=== PATIENT | female | born 1945 | race Caucasian/White ===

== ENCOUNTER → 2016-11-06 | Outpatient (CLI) | payer OTHER ==
[~2016-11-06] VITALS: Ht 147.3 cm; Wt 59.0 kg
[~2016-11-06] MED LIST: /GLIP10TAB OR; ACET65TA OR; AMLO10TA OR; AMLO25TA PO; ASPI1TAB24 PO; ASPI81TA83 OR; CALC500T36 PO; CALC500T49 PO; FERR325T3 PO; GABA-279 PO; GLIP10TA6 PO; GLUC850T OR; IRON65TA PO; LIDOCAINE 2% INJ 100 MG/5 ML SDV (FOR ANES.) As Ordered ONE; LIPI80TA PO; LISI10TA4 PO; LISI5TAB OR; LR 1,000 ML IV SCH; MAGN1TAB25 PO; METF850T PO; MULT1TAB10 PO; MULTIVIT PO; NOVOLOG100 MG/ML SC; OMEP40CA2 PO; PRESCAP PO; PROPOFOL 200 MG/20 ML VIAL As Ordered ONE; RANI1TAB6 PO; TYLE325T5 PO; VITA100072 PO; VOLT1GEL24 TD; ZYRT10CA PO; astelin
--- NOTE | 2016-11-06 11:58 | ROOR ---
Patient Name: Ev Lucas Procedure Date: 11/06/2016 11:41 AM Date of : 1945 Age: 70 Room: [facility] Gender: Female Note Status: Finalized Procedure: Upper GI endoscopy Indications: Iron deficiency anemia, Heartburn Providers: Ayaan MARISCAL MD Referring MD: Guille Conley MD Requesting Provider: Medicines: Monitored Anesthesia Care Complications: No immediate complications. Procedure: Pre-Anesthesia Assessment: - The heart rate, respiratory rate, oxygen saturations, blood pressure, adequacy of pulmonary ventilation, and response to care were monitored throughout the procedure. The Endoscope was introduced through the mouth, and advanced to the third part of duodenum. The upper GI endoscopy was accomplished without difficulty. The patient tolerated the procedure well. Findings: The esophagus was normal. The stomach was normal. The examined duodenum was normal. Biopsies for histology were taken with a cold forceps for evaluation of celiac disease. Impression: - Normal esophagus. - Normal stomach. - Normal examined duodenum. Biopsied. Recommendation: - Observe patient's clinical course. - Continue present medications. Ayaan Mariscal MD Ayaan MARISCAL MD 11/06/2016 11:57:59 AM This report has been signed electronically. Number of Addenda: 0 Note Initiated On: 11/06/2016 11:41 AM Estimated Blood Loss: Estimated blood loss: none.
--- NOTE | 2016-11-06 12:12 | ROOR ---
Patient Name: Ev Lucas Procedure Date: 11/06/2016 11:41 AM Date of : 1945 Age: 70 Room: [facility] Gender: Female Note Status: Finalized Procedure: Colonoscopy Indications: Clinically significant diarrhea of unexplained origin, Iron deficiency anemia Providers: Ayaan MARISCAL MD Referring MD: Guille Conley MD Requesting Provider: Medicines: Monitored Anesthesia Care Complications: No immediate complications. Procedure: Pre-Anesthesia Assessment: - The heart rate, respiratory rate, oxygen saturations, blood pressure, adequacy of pulmonary ventilation, and response to care were monitored throughout the procedure. The Colonoscope was introduced through the anus and advanced to 15 cm into the ileum. The colonoscopy was performed without difficulty. The patient tolerated the procedure well. The quality of the bowel preparation was good. Findings: The perianal and digital rectal examinations were normal. (Exam: Complete, Prep: Good or Excellent.) Small Internal Hemorrhoids. A few medium-mouthed diverticula were found in the sigmoid colon. The exam was otherwise normal throughout the examined colon. The terminal ileum appeared normal. Biopsies for histology were taken with a cold forceps for evaluation of microscopic colitis. Impression: - (Exam: Complete, Prep: Good or Excellent.) - Small Internal Hemorrhoids. - Mild diverticulosis in the sigmoid colon. - The Colon is otherwise normal. - The examined portion of the ileum was normal. - Biopsies were taken with a cold forceps for evaluation of microscopic colitis. Recommendation: - Telephone endoscopist for pathology results in 2 weeks. - Continue present medications. Ayaan Mariscal MD Ayaan MARISCAL MD 11/06/2016 12:11:49 PM This report has been signed electronically. Number of Addenda: 0 Note Initiated On: 11/06/2016 11:41 AM Estimated Blood Loss: Estimated blood loss: none.
[2016-11-06 12:35] VITALS: BP 148/73
== END ==
LOC: M OPP 10:44
PROVIDERS: ATTEND Internal Medicine Gastroenterology
DX: R19.7 Diarrhea, unspecified (principal); R19.4 Change in bowel habit; D50.9 Iron deficiency anemia, unspecified; R12 Heartburn; K57.30 Diverticulosis of large intestine without perforation or abscess without bleeding; K64.0 First degree hemorrhoids; I10 Essential (primary) hypertension; E78.5 Hyperlipidemia, unspecified; E11.36 Type 2 diabetes mellitus with diabetic cataract; M19.90 Unspecified osteoarthritis, unspecified site; E11.40 Type 2 diabetes mellitus with diabetic neuropathy, unspecified; M54.30 Sciatica, unspecified side; M81.0 Age-related osteoporosis without current pathological fracture; Z78.0 Asymptomatic menopausal state; Z79.82 Long term (current) use of aspirin; Z79.84 Long term (current) use of oral hypoglycemic drugs; Z79.899 Other long term (current) drug therapy; Z86.69 Personal history of other diseases of the nervous system and sense organs; Z87.891 Personal history of nicotine dependence; M79.604 Pain in right leg; M79.605 Pain in left leg

== ENCOUNTER → 2016-12-07 | Outpatient (REF) | payer OTHER ==
[~2016-12-07] MED LIST changes: -LIDOCAINE 2% INJ 100 MG/5 ML SDV (FOR ANES.) As Ordered ONE; -LR 1,000 ML IV SCH; -PROPOFOL 200 MG/20 ML VIAL As Ordered ONE
== END ==
LOC: M SFHCPLAZ 15:50
PROVIDERS: ATTEND Nurse Practitioner Family
DX: E11.21 Type 2 diabetes mellitus with diabetic nephropathy (principal); Z53.8 Procedure and treatment not carried out for other reasons

== ENCOUNTER 2016-12-31 12:46 | Emergency (ER) | payer OTHER ==
[~2016-12-31] VITALS: Ht 147.3 cm; Wt 61.2 kg
[2016-12-31] MEDS ORDERED: RANI1TAB6 PO (13:27)
[2016-12-31] MEDS ORDERED: NS 1,000 ML IV ONE (14:00)
[2016-12-31 14:27] LABS: VENOUS BASE EXCESS -6.7 (-2.0-2.0); VENOUS O2 SATURATION 80.8 % (60.0-80.0); VENOUS PARTIAL PRESSURE O2 46.1 mmHg (30.0-50.0); VENOUS STANDARD HCO3 18.7 MEQ/L; VENOUS TOTAL CO2 19.7 MEQ/L (24.0-28.0)
[2016-12-31 14:29] LABS: BASO % 0.2 % (0.0-1.0); EOS % 0.3 % (0.0-3.0); LARGE UNSTAINED CELL # 0.1 K/mm3 (0.0-0.4); LYMPH # 0.9 K/mm3 (1.5-4.5); LYMPH % 8.9 % (24.0-44.0); MEAN CORPUSCULAR HEMOGLOBIN 25.6 pg (27.0-33.0); MEAN CORPUSCULAR VOLUME 85.3 fl (80.0-96.0); MONO # 0.4 K/mm3 (0.0-0.8); MONO % 3.9 % (0.0-5.0); NEUTROPHILS # 8.4 K/mm3 (1.8-7.7); NEUTROPHILS % 85.7 % (36.0-66.0); PLATELET COUNT, AUTOMATED 208 k/mm3 (150-450); WHITE BLOOD COUNT 9.8 K/mm3 (4.0-10.0)
[2016-12-31 14:45] LABS: CALCIUM LEVEL 9.1 MG/DL (8.8-10.2); CREATININE FOR GFR 1.76 MG/DL (0.55-1.02); GLOMERULAR FILTRATION RATE 30.5 (>45)
[2016-12-31 14:47] LABS: POTASSIUM SERUM 6.4 MEQ/L (3.5-5.1)
[2016-12-31] MEDS ORDERED: SOD POLYSTYRENE SULFONATE SUSP 15 GM/60 ML UD PO ONE (15:45)
[2016-12-31] MEDS ORDERED: HumuLIN R (REGULAR) INSULIN (NovoLIN R) **100U/ML** PER UNIT IV ONE ×2 (17:15→17:45)
[2016-12-31 19:12] LABS: CALCIUM LEVEL 8.7 MG/DL (8.8-10.2); CREATININE FOR GFR 1.48 MG/DL (0.55-1.02); GLOMERULAR FILTRATION RATE 37.2 (>45); POTASSIUM SERUM 4.7 MEQ/L (3.5-5.1)
[2016-12-31] MEDS ORDERED: METF1000 PO (21:19)
[2016-12-31 21:53] VITALS: BP 187/81
--- NOTE | 2017-01-02 12:12 | ECGEPIP ---
Stationary ECG Study 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
== END 2016-12-31 22:00 | disposition home or self-care (01) ==
LOC: M ED 14:29
DX: E11.65 Type 2 diabetes mellitus with hyperglycemia (principal); I10 Essential (primary) hypertension; Z79.899 Other long term (current) drug therapy; Z79.4 Long term (current) use of insulin; Z79.82 Long term (current) use of aspirin

== ENCOUNTER 2017-01-01 21:50 | Emergency (ER) | payer OTHER ==
[~2017-01-01] VITALS: Ht 147.3 cm; Wt 73.5 kg
[2017-01-01 22:48] LABS: BASO % 0.3 % (0.0-1.0); EOS % 0.5 % (0.0-3.0); LARGE UNSTAINED CELL # 0.1 K/mm3 (0.0-0.4); LARGE UNSTAINED CELL % 1.5 % (0.0-4.0); LYMPH # 1.6 K/mm3 (1.5-4.5); LYMPH % 20.8 % (24.0-44.0); MEAN CORPUSCULAR HEMOGLOBIN 27.1 pg (27.0-33.0); MEAN CORPUSCULAR HGB CONC 31.6 g/dl (32.0-36.5); MEAN CORPUSCULAR VOLUME 85.8 fl (80.0-96.0); MONO # 0.3 K/mm3 (0.0-0.8); NEUTROPHILS # 5.7 K/mm3 (1.8-7.7); NEUTROPHILS % 72.9 % (36.0-66.0); PLATELET COUNT, AUTOMATED 192 k/mm3 (150-450); RED CELL DISTRIBUTION WIDTH 15.3 % (11.5-14.5); WHITE BLOOD COUNT 7.8 K/mm3 (4.0-10.0)
[2017-01-01] MEDS ORDERED: NS 1,000 ML IV SCH (23:00)
[2017-01-01 23:07] LABS: CALCIUM LEVEL 8.7 MG/DL (8.8-10.2); CREATININE FOR GFR 1.36 MG/DL (0.55-1.02); POTASSIUM SERUM 4.8 MEQ/L (3.5-5.1)
[2017-01-01] MEDS ORDERED: HumuLIN R (REGULAR) INSULIN (NovoLIN R) **100U/ML** PER UNIT IV ONE (23:15)
[2017-01-02] MEDS ORDERED: HumuLIN R (REGULAR) INSULIN (NovoLIN R) **100U/ML** PER UNIT IV STA ×2 (00:55→01:32)
[2017-01-02 02:29] VITALS: BP 151/68
--- NOTE | 2017-01-02 11:35 | REP ---
CHEST, TWO VIEWS: Two views of the chest are performed. There is mild cardiomegaly. There is no acute infiltrate. There is calcification and tortuosity of the thoracic aorta. The mediastinal silhouette is unchanged. There are degenerative changes of the spine. IMPRESSION: Mild cardiomegaly. No evidence of acute pulmonary disease. Signed by Vinay Neely MD 01/02/2017 07:59 P
--- NOTE | 2017-01-02 12:28 | ECGEPIP ---
Stationary ECG Study [facility] - ED Test Date: 2017-01-01 Pat Name: QIAN HAYDEN Department: Room: - Gender: F [employer]: mary : 1945 Requested By: PJUA Mota Order Number: [id number] Reading MD: Samantha Oh Measurements Intervals [place] Rate: 77 P: 49 NH: 131 QRS: 1 QRSD: 78 T: 48 QT: 353 QTc: 400 Interpretive Statements SINUS RHYTHM DECREASED RATE 12/31/16 Electronically Signed On 01-02-2017 12:28:05 EST by Samantha Oh
== END 2017-01-02 02:33 | disposition home or self-care (01) ==
LOC: M ED 22:44
DX: E11.65 Type 2 diabetes mellitus with hyperglycemia (principal); K21.9 Gastro-esophageal reflux disease without esophagitis; E78.9 Disorder of lipoprotein metabolism, unspecified; Z79.899 Other long term (current) drug therapy; Z79.84 Long term (current) use of oral hypoglycemic drugs; Z79.82 Long term (current) use of aspirin; D50.9 Iron deficiency anemia, unspecified; E11.21 Type 2 diabetes mellitus with diabetic nephropathy; E83.40 Disorders of magnesium metabolism, unspecified

== ENCOUNTER → 2017-01-01 | Outpatient (REF) | payer OTHER ==
[~2017-01-01] MED LIST changes: +METF1000 PO
[2017-01-01 15:40] LABS: MEAN CORPUSCULAR HEMOGLOBIN 27.1 pg (27.0-33.0); MEAN CORPUSCULAR HGB CONC 31.4 g/dl (32.0-36.5); MEAN CORPUSCULAR VOLUME 86.5 fl (80.0-96.0); RED CELL DISTRIBUTION WIDTH 15.4 % (11.5-14.5); WHITE BLOOD COUNT 10.4 K/mm3 (4.0-10.0)
[2017-01-01 15:48] LABS: ALBUMIN 3.6 GM/DL (3.2-5.2); ALBUMIN/GLOBULIN RATIO 1.09 (1.00-1.93); BILIRUBIN,TOTAL 0.6 MG/DL (0.2-1.0); CALCIUM LEVEL 8.7 MG/DL (8.8-10.2); CREATININE FOR GFR 1.43 MG/DL (0.55-1.02); GLOMERULAR FILTRATION RATE 38.7 (>45); MAGNESIUM LEVEL 1.2 MG/DL (1.8-2.4); TOTAL PROTEIN 6.9 GM/DL (6.4-8.2)
[2017-01-01 15:55] LABS: POTASSIUM SERUM 5.2 MEQ/L (3.5-5.1)
== END ==
LOC: M SFHCPLAZ 13:02
PROVIDERS: ATTEND Nurse Practitioner Family
DX: D50.9 Iron deficiency anemia, unspecified (principal); E11.21 Type 2 diabetes mellitus with diabetic nephropathy; E83.40 Disorders of magnesium metabolism, unspecified

== ENCOUNTER → 2017-01-08 | Outpatient (REF) | payer OTHER ==
[2017-01-08 12:47] LABS: ALBUMIN 3.6 GM/DL (3.2-5.2); ALBUMIN/GLOBULIN RATIO 1.13 (1.00-1.93); BILIRUBIN,TOTAL 0.5 MG/DL (0.2-1.0); CALCIUM LEVEL 8.9 MG/DL (8.8-10.2); CREATININE FOR GFR 1.23 MG/DL (0.55-1.02); GLOMERULAR FILTRATION RATE 46.1 (>45); TOTAL PROTEIN 6.8 GM/DL (6.4-8.2)
[2017-01-08 12:52] LABS: POTASSIUM SERUM 5.3 MEQ/L (3.5-5.1)
== END ==
LOC: M SFHCPLAZ 09:37
PROVIDERS: ATTEND Nurse Practitioner Family
DX: E11.65 Type 2 diabetes mellitus with hyperglycemia (principal)

== ENCOUNTER → 2017-02-08 | Outpatient (REF) | payer OTHER ==
[2017-02-08 12:36] LABS: ALBUMIN 3.5 GM/DL (3.2-5.2); ALBUMIN/GLOBULIN RATIO 1.09 (1.00-1.93); BILIRUBIN,TOTAL 0.4 MG/DL (0.2-1.0); CALCIUM LEVEL 8.9 MG/DL (8.8-10.2); CREATININE FOR GFR 1.2 MG/DL (0.55-1.02); GLOMERULAR FILTRATION RATE 47.4 (>45); POTASSIUM SERUM 4.9 MEQ/L (3.5-5.1); TOTAL PROTEIN 6.7 GM/DL (6.4-8.2)
== END ==
LOC: M SFHCPLAZ 09:03
PROVIDERS: ATTEND Nurse Practitioner Family
DX: E11.21 Type 2 diabetes mellitus with diabetic nephropathy (principal)
CPT/HCPCS: 36415; 80053; 83036; G0463

== ENCOUNTER → 2017-02-26 | Outpatient (REF) | payer OTHER ==
[2017-02-26 12:07] LABS: ALBUMIN 3.3 GM/DL (3.2-5.2); ALBUMIN/GLOBULIN RATIO 1.1 (1.00-1.93); BILIRUBIN,TOTAL 0.6 MG/DL (0.2-1.0); CALCIUM LEVEL 8.8 MG/DL (8.8-10.2); CREATININE FOR GFR 1.05 MG/DL (0.55-1.02); GLOMERULAR FILTRATION RATE 55.3 (>45); TOTAL PROTEIN 6.3 GM/DL (6.4-8.2)
== END ==
LOC: M SFHCPLAZ 09:06
PROVIDERS: ATTEND Nurse Practitioner Family
DX: E11.21 Type 2 diabetes mellitus with diabetic nephropathy (principal)

== ENCOUNTER → 2017-06-02 | Outpatient (REF) | payer OTHER ==
[~2017-06-02] MED LIST changes: +ASPI-161 PO; -ASPI1TAB24 PO; -METF1000 PO; +METF10004 PO; -METF850T PO; +METF850T4 PO; +VOLT1GEL15 TD; -VOLT1GEL24 TD
[2017-06-02 11:39] LABS: ALBUMIN 3.4 GM/DL (3.2-5.2); ALBUMIN/GLOBULIN RATIO 1.1 (1.00-1.93); BILIRUBIN,TOTAL 0.4 MG/DL (0.2-1.0); CREATININE FOR GFR 1.04 MG/DL (0.55-1.02); GLOMERULAR FILTRATION RATE 55.9 (>45); POTASSIUM SERUM 4.7 MEQ/L (3.5-5.1); TOTAL PROTEIN 6.5 GM/DL (6.4-8.2)
== END ==
LOC: M SFHCPLAZ 07:55
PROVIDERS: ATTEND Nurse Practitioner Family
DX: E11.21 Type 2 diabetes mellitus with diabetic nephropathy (principal)

== ENCOUNTER → 2017-08-25 | Outpatient (CLI) | payer OTHER ==
--- NOTE | 2017-08-25 14:58 | REPMRS ---
Patient History The patient states she had a clinical breast exam in 08/2017. Patient is postmenopausal and is nulliparous. No known family history of cancer. Digital Woman Screen Mammo: August 25, 2017 - Exam #: [id number] Bilateral CC and MLO view(s) were taken. Technologist: Melissa Freed Technologist Prior study comparison: June 17, 2016, digital woman screen mammo performed at [facility]. June 10, 2015, digital woman screen mammo performed at [facility] to [facility]. FINDINGS: The breast tissue is heterogeneously dense. This may lower the sensitivity of mammography. There has been no change in the appearance of the mammogram from the prior studies. There is a moderate amount of residual fibroglandular tissue which is fairly symmetric. There is no interval development of dominant mass, areas of architectural distortion, or clustered microcalcification typical of malignancy. ASSESSMENT: BI-RADS/ACR category 1 mammogram. Negative. Recommendation Routine screening mammogram in 1 year (for women over age 40). This mammogram was interpreted with the aid of an FDA-approved computer-aided dectection system. Electronically Signed By: Vinay Neely MD 08/25/17 [id number]
== END ==
LOC: M WHC 13:19
PROVIDERS: ATTEND Nurse Practitioner Women's Health
DX: Z01.419 Encounter for gynecological examination (general) (routine) without abnormal findings (principal); Z12.31 Encounter for screening mammogram for malignant neoplasm of breast; Z78.0 Asymptomatic menopausal state; Z12.12 Encounter for screening for malignant neoplasm of rectum
CPT/HCPCS: 82270; G0101; G0202

== ENCOUNTER → 2017-10-13 | Outpatient (REF) | payer OTHER ==
[2017-10-13 11:11] LABS: ALBUMIN 3.5 GM/DL (3.2-5.2); ALBUMIN/GLOBULIN RATIO 1.03 (1.00-1.93); BILIRUBIN,TOTAL 0.4 MG/DL (0.2-1.0); CALCIUM LEVEL 9.2 MG/DL (8.8-10.2); GLOMERULAR FILTRATION RATE 58.5 (>45); TOTAL PROTEIN 6.9 GM/DL (6.4-8.2)
[2017-10-13 11:22] LABS: POTASSIUM SERUM 5.3 MEQ/L (3.5-5.1)
== END ==
LOC: M SFHCPLAZ 08:08
PROVIDERS: ATTEND Nurse Practitioner Family
DX: E11.21 Type 2 diabetes mellitus with diabetic nephropathy (principal); E78.4 Other hyperlipidemia

== ENCOUNTER → 2017-10-20 | Outpatient (REF) | payer OTHER | LOC: M SFHCPLAZ 14:42 | PROVIDERS: ATTEND Nurse Practitioner Family | DX: E11.21 Type 2 diabetes mellitus with diabetic nephropathy (principal); Z53.8 Procedure and treatment not carried out for other reasons ==

== ENCOUNTER → 2017-10-21 | Outpatient (REF) | payer OTHER ==
[2017-10-21 15:46] LABS: CALCIUM LEVEL 8.7 MG/DL (8.8-10.2); CREATININE FOR GFR 1.2 MG/DL (0.55-1.02); GLOMERULAR FILTRATION RATE 47.4 (>45); POTASSIUM SERUM 4.9 MEQ/L (3.5-5.1)
== END ==
LOC: M SFHCPLAZ 13:16
PROVIDERS: ATTEND Nurse Practitioner Family
DX: E11.21 Type 2 diabetes mellitus with diabetic nephropathy (principal)

== ENCOUNTER 2018-01-13 13:15 | Emergency (ER) | payer OTHER ==
[2018-01-13 14:29] LABS: BASO # 0.1 10^3/uL (0.0-0.2); BASO % 0.7 % (0.0-1.0); EOS # 0.1 10^3/uL (0.0-0.50); EOS % 0.9 % (0.0-3.0); HEMATOCRIT 32.6 % (36.0-47.0); HEMOGLOBIN 10.2 g/dl (12.0-16.0); IMMATURE GRANULOCYTE % 0.4 % (0-3.0); LYMPH # 1.9 10^3/uL (1.5-4.5); LYMPH % 27.1 % (24.0-44.0); MEAN CORPUSCULAR HEMOGLOBIN 25.8 pg (27.0-33.0); MEAN CORPUSCULAR HGB CONC 31.3 g/dl (32.0-36.5); MEAN CORPUSCULAR VOLUME 82.3 fl (80.0-96.0); MONO # 0.5 10^3/uL (0.0-0.8); MONO % 6.8 % (0.0-5.0); NEUTROPHILS # 4.4 10^3/uL (1.8-7.7); NEUTROPHILS % 64.1 % (36.0-66.0); PLATELET COUNT, AUTOMATED 221 10^3/uL (150-450); RED BLOOD COUNT 3.96 10^6/uL (4.00-5.40); RED CELL DISTRIBUTION WIDTH 15.6 % (11.5-14.5); WHITE BLOOD COUNT 6.9 10^3/uL (4.0-10.0)
[2018-01-13 14:58] LABS: ALBUMIN 3.9 GM/DL (3.2-5.2); ALBUMIN/GLOBULIN RATIO 1.11 (1.00-1.93); ALKALINE PHOSPHATASE 61 U/L (45-117); ALT/SGPT 19 U/L (12-78); ANION GAP 7 MEQ/L (8-16); AST/SGOT 11 U/L (7-37); BILIRUBIN,DIRECT 0.1 MG/DL (0.0-0.2); BILIRUBIN,TOTAL 0.5 MG/DL (0.2-1.0); BLOOD UREA NITROGEN 18 MG/DL (7-18); CALCIUM LEVEL 8.9 MG/DL (8.8-10.2); CARBON DIOXIDE LEVEL 29 MEQ/L (21-32); CHLORIDE LEVEL 102 MEQ/L (98-107); CREATININE FOR GFR 1.19 MG/DL (0.55-1.30); GLOMERULAR FILTRATION RATE 47.7 (>39); GLUCOSE, FASTING 189 MG/DL (70-100); LIPASE 214 U/L (73-393); POTASSIUM SERUM 4.1 MEQ/L (3.5-5.1); SODIUM LEVEL 138 MEQ/L (136-145); TOTAL PROTEIN 7.4 GM/DL (6.4-8.2)
[2018-01-13 15:03] LABS: LACTIC ACID SEPSIS PROTOCOL 2.9 MMOL/L (0.4-2.0)
[2018-01-13 15:14] LABS: TROPONIN I < 0.02 NG/ML (< 0.10)
[2018-01-13 15:15] LABS: CPK CREATINE PHOSPHOKINASE 60 U/L (26-192); MB/CK RELATIVE INDEX 1.66 (< OR =4)
[2018-01-13] MEDS: ONDANSETRON 4MG/2ML VIAL (J2405) IV (15:25)
[2018-01-13] MEDS: NS 1,000 ML IV (15:25)
[2018-01-13] MEDS: hydrALAZINE INJ 20 MG/ML VIAL IV (17:55)
[2018-01-13 18:18] LABS: LACTIC ACID SEPSIS PROTOCOL 0.9 MMOL/L (0.4-2.0)
== END 2018-01-13 18:38 | disposition home or self-care (01) ==
LOC: M ED 13:15
DX: R11.2 Nausea with vomiting, unspecified (principal); E11.9 Type 2 diabetes mellitus without complications; I10 Essential (primary) hypertension; G43.909 Migraine, unspecified, not intractable, without status migrainosus; K21.9 Gastro-esophageal reflux disease without esophagitis; M81.0 Age-related osteoporosis without current pathological fracture; Z79.899 Other long term (current) drug therapy; Z79.84 Long term (current) use of oral hypoglycemic drugs; Z79.4 Long term (current) use of insulin
CPT/HCPCS: J2405

== ENCOUNTER → 2018-02-03 | Outpatient (REF) | payer OTHER ==
[2018-02-03 13:59] LABS: MALB URINE SIEMENS 52.8 MG/L
== END ==
LOC: M SFHCPLAZ 13:05
DX: E11.21 Type 2 diabetes mellitus with diabetic nephropathy (principal); D50.9 Iron deficiency anemia, unspecified
CPT/HCPCS: 82043

== ENCOUNTER → 2018-02-04 | Outpatient (REF) | payer OTHER ==
[2018-02-04 13:00] LABS: RETICULOCYTE # 34.6 10^9/L (17-77); RETICULOCYTE % 0.9 % (0.5-1.5)
[2018-02-04 13:26] LABS: REASON FOR REVIEW ANEMIA / RBC MORPH; SLIDE REVIEW Report; SOURCE PERIPHERAL SMEAR
[2018-02-05 08:06] LABS: HAPTOGLOBIN 242 mg/dL (34-200)
== END ==
LOC: M SFHCPLAZ 11:44
DX: D64.9 Anemia, unspecified (principal)
CPT/HCPCS: 83010

== ENCOUNTER 2018-02-10 10:57 | Emergency (ER) | payer OTHER ==
[2018-02-10 14:20] LABS: BEDSIDE GLUCOSE 122 MG/DL (83-110)
[2018-02-10] MEDS: NS 500 ML IV (15:08)
[2018-02-10 15:09] LABS: BASO # 0.1 10^3/uL (0.0-0.2); BASO % 0.7 % (0.0-1.0); EOS # 0.1 10^3/uL (0.0-0.50); HEMATOCRIT 30.8 % (36.0-47.0); HEMOGLOBIN 9.6 g/dl (12.0-15.5); IMMATURE GRANULOCYTE % 0.3 % (0-3.0); LYMPH # 1.6 10^3/uL (1.5-4.5); LYMPH % 22.4 % (24.0-44.0); MEAN CORPUSCULAR HEMOGLOBIN 25.9 pg (27.0-33.0); MEAN CORPUSCULAR HGB CONC 31.2 g/dl (32.0-36.5); MONO # 0.6 10^3/uL (0.0-0.8); MONO % 8.4 % (0.0-5.0); NEUTROPHILS # 4.7 10^3/uL (1.8-7.7); NEUTROPHILS % 66.2 % (36.0-66.0); PLATELET COUNT, AUTOMATED 207 10^3/uL (150-450); RED BLOOD COUNT 3.71 10^6/uL (4.00-5.40); RED CELL DISTRIBUTION WIDTH 15.9 % (11.5-14.5); WHITE BLOOD COUNT 7.1 10^3/uL (4.0-10.0)
[2018-02-10] MEDS: ONDANSETRON 4MG/2ML VIAL (J2405) IV (15:09)
[2018-02-10 15:33] LABS: ALBUMIN 3.7 GM/DL (3.2-5.2); ALBUMIN/GLOBULIN RATIO 1.03 (1.00-1.93); ALKALINE PHOSPHATASE 71 U/L (45-117); ALT/SGPT 17 U/L (12-78); AMYLASE 70 U/L (25-115); ANION GAP 8 MEQ/L (8-16); AST/SGOT 12 U/L (7-37); BILIRUBIN,DIRECT 0.1 MG/DL (0.0-0.2); BILIRUBIN,TOTAL 0.4 MG/DL (0.2-1.0); BLOOD UREA NITROGEN 16 MG/DL (7-18); CALCIUM LEVEL 8.4 MG/DL (8.8-10.2); CARBON DIOXIDE LEVEL 27 MEQ/L (21-32); CHLORIDE LEVEL 107 MEQ/L (98-107); CPK CREATINE PHOSPHOKINASE 59 U/L (26-192); CREATININE FOR GFR 1.09 MG/DL (0.55-1.30); GLOMERULAR FILTRATION RATE 52.8 (>39); GLUCOSE, FASTING 120 MG/DL (70-100); LIPASE 295 U/L (73-393); POTASSIUM SERUM 4.1 MEQ/L (3.5-5.1); SODIUM LEVEL 142 MEQ/L (136-145); TOTAL PROTEIN 7.3 GM/DL (6.4-8.2); TROPONIN I < 0.02 NG/ML (< 0.10)
[2018-02-10 15:34] LABS: CK-MB VALUE MASS < 1.0 NG/ML (<3.6); MB/CK RELATIVE INDEX 1.69 (< OR =4)
[2018-02-10 15:58] LABS: KETONE, URINE AUTO RFX NEGATIVE (NEGATIVE); LEUKOCYTE ESTERASE UR AUTO RFX 2+ (NEGATIVE); NITRITE, URINE AUTO RFX NEGATIVE (NEGATIVE); RBC, URINE AUTO RFX 4 /HPF (0-3); SPECIFIC GRAVITY UR AUTO RFX 1.013 (1.002-1.035); SQUAM EPITHELIAL CELL UR AURFX 2 /HPF (0-6); WBC, URINE AUTO RFX 9 /HPF (0-3)
[2018-02-10] MEDS ORDERED: NITROFURANTOIN (MACROBID) 100 MG CAP PO (16:15)
== END 2018-02-10 16:28 | disposition home or self-care (01) ==
LOC: M ED 10:57
DX: R11.2 Nausea with vomiting, unspecified (principal); N39.0 Urinary tract infection, site not specified; E11.9 Type 2 diabetes mellitus without complications; I10 Essential (primary) hypertension; M81.0 Age-related osteoporosis without current pathological fracture; K21.9 Gastro-esophageal reflux disease without esophagitis; G43.909 Migraine, unspecified, not intractable, without status migrainosus; Z87.440 Personal history of urinary (tract) infections; Z79.899 Other long term (current) drug therapy; Z79.02 Long term (current) use of antithrombotics/antiplatelets; Z79.4 Long term (current) use of insulin
CPT/HCPCS: J2405

== ENCOUNTER → 2018-02-16 | Outpatient (REF) | payer OTHER | LOC: M SFHCPLAZ 16:31 | DX: D64.9 Anemia, unspecified (principal); R10.13 Epigastric pain ==

== ENCOUNTER → 2018-02-17 | Outpatient (REF) | payer OTHER | LOC: M SFHCPLAZ 09:10 | DX: D64.9 Anemia, unspecified (principal); R10.13 Epigastric pain ==

== ENCOUNTER → 2018-02-18 | Outpatient (REF) | payer OTHER ==
[2018-02-21 00:06] LABS: H PYLORI STOOL ANTIGEN Negative (Negative)
== END ==
LOC: M SFHCPLAZ 15:42
DX: R10.13 Epigastric pain (principal)
CPT/HCPCS: 87338

== ENCOUNTER → 2018-02-24 | Outpatient (REF) | payer OTHER ==
[2018-02-24 19:07] LABS: HEMATOCRIT 30.6 % (36.0-47.0)
[2018-02-24 19:08] LABS: RETIC HEMOGLOBIN EQUIVALENT 31.7 pg (24-36)
[2018-02-24 19:23] LABS: VITAMIN B12 LEVEL > 2000 PG/ML (247-911)
[2018-02-24 19:29] LABS: FERRITIN 57 NG/ML (8-252); FREE T4 1.22 NG/DL (0.76-1.46); IMMUNOGLOBULIN G 793 MG/DL (681-1648); IMMUNOGLOBULIN M 36.8 MG/DL (40-230); IRON (FE) 33 UG/DL (50-170); PERCENT SATURATION 9.5 % (13.2-45.0); THYROID STIMULATING HORMONE 0.774 uIU/ML (0.358-3.740); TOTAL IRON BINDING CAPACITY 348 UG/DL (250-450); TOTAL PROTEIN 7.2 GM/DL (6.4-8.2)
[2018-02-24 19:50] LABS: REASON FOR REVIEW ANEMIA / RBC MORPH; SLIDE REVIEW Report; SOURCE PERIPHERAL SMEAR
[2018-02-25 14:31] LABS: RBC FOLATE 754.9 NG/ML (280-791)
[2018-02-28 11:04] LABS: ALBUMIN 4.03 GM/DL (3.29-5.55); ALPHA-1-GLOBULIN % 4.2 % (2.9-4.9); ALPHA-2-GLOBULINS 1.12 GM/DL (0.42-0.99); ALPHA-2-GLOBULINS % 15.5 % (7.1-11.8); BETA-1-GLOBULINS 0.49 GM/DL (0.28-0.60); BETA-1-GLOBULINS % 6.8 % (4.7-7.2); BETA-2-GLOBULINS 0.46 GM/DL (0.19-0.55); BETA-2-GLOBULINS % 6.4 % (3.2-6.5); GAMMA GLOBULIN % 11.1 % (11.1-18.8)
[2018-03-01 14:14] LABS: SOLUBLE TRANSFERRIN RECEPTOR 20.1 nmol/L (12.2-27.3)
[2018-03-01 14:14] LABS: FREE KAPPA LIGHT CHAINS SERUM 26.6 mg/L (3.3-19.4); FREE LAMBDA LIGHT CHAINS SERUM 16.7 mg/L (5.7-26.3); KAPPA/LAMBDA RATIO SERUM 1.59 (0.26-1.65); METHYLMALONIC ACID 154 nmol/L (0-378)
== END ==
LOC: M LAB REF 17:50
DX: D46.9 Myelodysplastic syndrome, unspecified (principal); Z79.899 Other long term (current) drug therapy
CPT/HCPCS: 83550

== ENCOUNTER → 2018-03-25 | Outpatient (REF) | payer OTHER ==
[2018-03-25 17:40] LABS: BASO % 0.6 % (0.0-1.0); EOS # 0.3 10^3/uL (0.0-0.50); EOS % 3.6 % (0.0-3.0); HEMATOCRIT 29.6 % (36.0-47.0); HEMOGLOBIN 9.4 g/dl (12.0-15.5); IMMATURE GRANULOCYTE % 0.1 % (0-3.0); LYMPH % 27.9 % (24.0-44.0); MEAN CORPUSCULAR HEMOGLOBIN 27.2 pg (27.0-33.0); MEAN CORPUSCULAR HGB CONC 31.8 g/dl (32.0-36.5); MEAN CORPUSCULAR VOLUME 85.8 fl (80.0-96.0); MONO # 0.6 10^3/uL (0.0-0.8); MONO % 8.8 % (0.0-5.0); NEUTROPHILS # 4.2 10^3/uL (1.8-7.7); PLATELET COUNT, AUTOMATED 200 10^3/uL (150-450); RED BLOOD COUNT 3.45 10^6/uL (4.00-5.40); RED CELL DISTRIBUTION WIDTH 15.4 % (11.5-14.5); WHITE BLOOD COUNT 7.2 10^3/uL (4.0-10.0)
[2018-03-25 21:00] LABS: ANION GAP 7 MEQ/L (8-16); BLOOD UREA NITROGEN 21 MG/DL (7-18); CALCIUM LEVEL 9.6 MG/DL (8.8-10.2); CARBON DIOXIDE LEVEL 29 MEQ/L (21-32); CHLORIDE LEVEL 106 MEQ/L (98-107); CREATININE FOR GFR 1.27 MG/DL (0.55-1.30); GLOMERULAR FILTRATION RATE 44.3 (>39); GLUCOSE, FASTING 113 MG/DL (70-100); SODIUM LEVEL 142 MEQ/L (136-145)
[2018-03-25 21:03] LABS: POTASSIUM SERUM 5.3 MEQ/L (3.5-5.1)
== END ==
LOC: M SFHCPLAZ 14:46
DX: D50.9 Iron deficiency anemia, unspecified (principal); E11.21 Type 2 diabetes mellitus with diabetic nephropathy
CPT/HCPCS: 80048

== ENCOUNTER → 2018-04-07 | Outpatient (REF) | payer OTHER ==
[2018-04-07 12:54] LABS: ANION GAP 7 MEQ/L (8-16); BLOOD UREA NITROGEN 30 MG/DL (7-18); CALCIUM LEVEL 9.3 MG/DL (8.8-10.2); CARBON DIOXIDE LEVEL 28 MEQ/L (21-32); CHLORIDE LEVEL 108 MEQ/L (98-107); CREATININE FOR GFR 1.37 MG/DL (0.55-1.30); GLOMERULAR FILTRATION RATE 40.6 (>39); GLUCOSE, FASTING 94 MG/DL (70-100); SODIUM LEVEL 143 MEQ/L (136-145)
== END ==
LOC: M SFHCPLAZ 10:44
DX: N18.3 Chronic kidney disease, stage 3 (moderate) (principal)
CPT/HCPCS: 80048

== ENCOUNTER → 2018-04-19 | Outpatient (CLI) | payer OTHER ==
[~2018-04-19] MED LIST changes: -/GLIP10TAB OR; -ACET65TA OR; -AMLO10TA OR; -AMLO25TA PO; -ASPI-161 PO; -ASPI81TA83 OR; -CALC500T36 PO; -CALC500T49 PO; -FERR325T3 PO; -GABA-279 PO; -GLIP10TA6 PO; -GLUC850T OR; +GLUCAGON FOR INJ 1 MG VIAL (J1610) As Ordered; -IRON65TA PO; +ISOVUE-370 76% 100ML VIAL (Q9967) As Ordered; -LIPI80TA PO; -LISI10TA4 PO; -LISI5TAB OR; -MAGN1TAB25 PO; -METF10004 PO; -METF850T4 PO; -MULT1TAB10 PO; -MULTIVIT PO; -NOVOLOG100 MG/ML SC; -OMEP40CA2 PO; -PRESCAP PO; -RANI1TAB6 PO; -TYLE325T5 PO; -VITA100072 PO; -VOLT1GEL15 TD; +VoLumen 0.1% SUSPENSION 450ML BOTTLE As Ordered; -ZYRT10CA PO; -astelin
== END ==
LOC: M RAD 09:33
DX: D50.9 Iron deficiency anemia, unspecified (principal); R10.13 Epigastric pain
CPT/HCPCS: Q9967

== ENCOUNTER 2018-04-26 09:24 | Day surgery (SDC) | payer OTHER ==
[2018-04-26] MEDS: NS 1,000 ML IV (09:59)
[2018-04-26] MEDS ORDERED: PROPOFOL 200 MG/20 ML VIAL As Ordered (10:44)
[2018-04-26] MEDS ORDERED: LIDOCAINE 1% MDV 20ML VIAL As Ordered (10:46)
[2018-04-26] MEDS ORDERED: ONDANSETRON 4MG/2ML VIAL (J2405) As Ordered (11:20)
== END 2018-04-26 12:03 | disposition home or self-care (01) ==
LOC: M OPP 09:24
DX: R19.5 Other fecal abnormalities (principal); K57.30 Diverticulosis of large intestine without perforation or abscess without bleeding; K64.8 Other hemorrhoids; R11.0 Nausea; R10.13 Epigastric pain; I10 Essential (primary) hypertension; E78.5 Hyperlipidemia, unspecified; E11.9 Type 2 diabetes mellitus without complications; K21.9 Gastro-esophageal reflux disease without esophagitis; D50.9 Iron deficiency anemia, unspecified; M41.9 Scoliosis, unspecified; M19.90 Unspecified osteoarthritis, unspecified site; M81.0 Age-related osteoporosis without current pathological fracture; G43.909 Migraine, unspecified, not intractable, without status migrainosus; G62.9 Polyneuropathy, unspecified; Z78.0 Asymptomatic menopausal state; R06.83 Snoring; R06.02 Shortness of breath; H40.9 Unspecified glaucoma; Z87.891 Personal history of nicotine dependence; Z79.899 Other long term (current) drug therapy; Z79.4 Long term (current) use of insulin
CPT/HCPCS: 45378

== ENCOUNTER 2018-05-25 07:49 | Outpatient (CLI) | payer OTHER ==
[2018-05-25] MEDS: IRON SUCROSE 25 MG in NS 50 ML IV (08:51)
[2018-05-25] MEDS: IRON SUCROSE 475 MG in NS 250 ML IV (10:16)
== END 2018-05-25 14:30 | disposition home or self-care (01) ==
LOC: M INFU 07:49
DX: D50.9 Iron deficiency anemia, unspecified (principal)

== ENCOUNTER → 2018-06-09 | Outpatient (REF) | payer OTHER ==
[2018-06-09 17:41] LABS: HEMATOCRIT 30.9 % (36.0-47.0); HEMOGLOBIN 9.6 g/dl (12.0-15.5); MEAN CORPUSCULAR VOLUME 90.9 fl (80.0-96.0); WHITE BLOOD COUNT 7.1 10^3/uL (4.0-10.0)
[2018-06-09 17:42] LABS: MEAN CORPUSCULAR HEMOGLOBIN 28.2 pg (27.0-33.0); MEAN CORPUSCULAR HGB CONC 31.1 g/dl (32.0-36.5); PLATELET COUNT, AUTOMATED 212 10^3/uL (150-450); RED CELL DISTRIBUTION WIDTH 15.2 % (11.5-14.5)
[2018-06-09 17:55] LABS: ESTIMATED AVERAGE GLUCOSE 140 MG/DL (60-110); HEMOGLOBIN A1c 6.5 %
[2018-06-09 17:57] LABS: ALBUMIN 3.8 GM/DL (3.2-5.2); ALBUMIN/GLOBULIN RATIO 1.06 (1.00-1.93); ALKALINE PHOSPHATASE 66 U/L (45-117); ALT/SGPT 23 U/L (12-78); ANION GAP 7 MEQ/L (8-16); AST/SGOT 13 U/L (7-37); BILIRUBIN,TOTAL 0.6 MG/DL (0.2-1.0); BLOOD UREA NITROGEN 20 MG/DL (7-18); CALCIUM LEVEL 9.3 MG/DL (8.8-10.2); CARBON DIOXIDE LEVEL 29 MEQ/L (21-32); CHLORIDE LEVEL 108 MEQ/L (98-107); CREATININE FOR GFR 1.32 MG/DL (0.55-1.30); GLOMERULAR FILTRATION RATE 42.4 (>39); GLUCOSE, FASTING 117 MG/DL (70-100); POTASSIUM SERUM 4.5 MEQ/L (3.5-5.1); SODIUM LEVEL 144 MEQ/L (136-145); TOTAL PROTEIN 7.4 GM/DL (6.4-8.2)
[2018-06-09 17:59] LABS: TOTAL 25(OH) VITAMIN D 29.3 NG/ML (30.0-100.0)
== END ==
LOC: M SFHCPLAZ 15:14
DX: E11.21 Type 2 diabetes mellitus with diabetic nephropathy (principal); E11.22 Type 2 diabetes mellitus with diabetic chronic kidney disease; M85.88 Other specified disorders of bone density and structure, other site; N18.3 Chronic kidney disease, stage 3 (moderate); D50.9 Iron deficiency anemia, unspecified
CPT/HCPCS: 80053

== ENCOUNTER → 2018-08-23 | Outpatient (CLI) | payer OTHER ==
[2018-08-23 23:16] LABS: ALBUMIN 4.1 GM/DL (3.2-5.2); ALBUMIN/GLOBULIN RATIO 1.28 (1.00-1.93); ALKALINE PHOSPHATASE 93 U/L (45-117); ALT/SGPT 25 U/L (12-78); ANION GAP 7 MEQ/L (8-16); AST/SGOT 17 U/L (7-37); BILIRUBIN,TOTAL 0.7 MG/DL (0.2-1.0); BLOOD UREA NITROGEN 16 MG/DL (7-18); CARBON DIOXIDE LEVEL 29 MEQ/L (21-32); CHLORIDE LEVEL 106 MEQ/L (98-107); CREATININE FOR GFR 1.49 MG/DL (0.55-1.30); GLOMERULAR FILTRATION RATE 36.8 (>39); GLUCOSE, FASTING 165 MG/DL (70-100); NT-PRO BNP 253 PG/ML (<125); POTASSIUM SERUM 4.9 MEQ/L (3.5-5.1); SODIUM LEVEL 142 MEQ/L (136-145); TOTAL PROTEIN 7.3 GM/DL (6.4-8.2)
== END ==
LOC: M LAB 13:50
DX: N18.3 Chronic kidney disease, stage 3 (moderate) (principal)
CPT/HCPCS: 80053

== ENCOUNTER → 2018-09-02 | Outpatient (CLI) | payer OTHER | LOC: M WHC 13:10 | DX: Z12.31 Encounter for screening mammogram for malignant neoplasm of breast (principal) | CPT/HCPCS: 77067 ==

== ENCOUNTER → 2018-09-02 | Outpatient (CLI) | payer OTHER | LOC: M WHC 13:17 | DX: Z12.31 Encounter for screening mammogram for malignant neoplasm of breast (principal); M85.80 Other specified disorders of bone density and structure, unspecified site (principal); Z78.0 Asymptomatic menopausal state | CPT/HCPCS: 77067; 77080 ==

== ENCOUNTER → 2018-09-15 | Outpatient (REF) | payer OTHER ==
[2018-09-15 17:08] LABS: TOTAL 25(OH) VITAMIN D 39.3 NG/ML (30.0-100.0)
[2018-09-15 17:26] LABS: ESTIMATED AVERAGE GLUCOSE 223 MG/DL (60-110); HEMOGLOBIN A1c 9.4 %
== END ==
LOC: M SFHCPLAZ 15:03
DX: E11.21 Type 2 diabetes mellitus with diabetic nephropathy (principal); N18.3 Chronic kidney disease, stage 3 (moderate); M81.0 Age-related osteoporosis without current pathological fracture
CPT/HCPCS: 83036

== ENCOUNTER → 2018-09-19 | Outpatient (REF) | payer OTHER ==
[2018-09-19 18:43] LABS: FERRITIN 168 NG/ML (8-252); IRON (FE) 45 UG/DL (50-170); PERCENT SATURATION 14.4 % (13.2-45.0); TOTAL IRON BINDING CAPACITY 313 UG/DL (250-450)
== END ==
LOC: M LAB REF 17:13
DX: D64.9 Anemia, unspecified (principal)
CPT/HCPCS: 83550

== ENCOUNTER → 2018-12-20 | Outpatient (REF) | payer MEDICARE ==
[~2018-12-20] MED LIST changes: +/GLIP10TAB OR; +ACET65TA OR; +AMLO10TA OR; +AMLO25TA PO; +ASPI-161 PO; +ASPI81TA83 OR; +ATOR40TA75 PO; +CALC500T36 PO; +CALC500T49 PO; +CEFD1CAP8 PO; +FERR325T3 PO; +GABA-1171 PO; +GLIP10TA6 PO; +GLUC850T OR; -GLUCAGON FOR INJ 1 MG VIAL (J1610) As Ordered; +IRON65TA PO; -ISOVUE-370 76% 100ML VIAL (Q9967) As Ordered; +LANTINJ4 SQ; +LIPI80TA PO; +LISI10TA4 PO; +LISI5TAB OR; +MAGN1TAB25 PO; +METF10004 PO; +METF850T4 PO; +MULT1TAB10 PO; +MULTIVIT PO; +NOVOLOG100 MG/ML SC; +OMEP40CA2 PO; +PRESCAP PO; +RANI1TAB6 PO; +TYLE325T5 PO; +VITA100072 PO; +VOLT1GEL15 TD; -VoLumen 0.1% SUSPENSION 450ML BOTTLE As Ordered; +ZOFR4TAB14 PO; +ZYRT10CA PO; +astelin
[2018-12-20 16:22] LABS: HEMATOCRIT 30.6 % (36.0-47.0); HEMOGLOBIN 9.5 g/dl (12.0-15.5); MEAN CORPUSCULAR HEMOGLOBIN 27.5 pg (27.0-33.0); MEAN CORPUSCULAR VOLUME 88.7 fl (80.0-96.0); PLATELET COUNT, AUTOMATED 190 10^3/uL (150-450); RED BLOOD COUNT 3.45 10^6/uL (4.00-5.40); WHITE BLOOD COUNT 6.2 10^3/uL (4.0-10.0)
[2018-12-20 16:31] LABS: ALBUMIN 3.5 GM/DL (3.2-5.2); BILIRUBIN,TOTAL 0.6 MG/DL (0.2-1.0); CALCIUM LEVEL 8.6 MG/DL (8.8-10.2); CHOLESTEROL RISK RATIO 3.14 (<5); CREATININE FOR GFR 1.78 MG/DL (0.55-1.30); GLOMERULAR FILTRATION RATE 29.9 (>39); PERCENT SATURATION 14.4 % (13.2-45.0); POTASSIUM SERUM 4.7 MEQ/L (3.5-5.1); TOTAL PROTEIN 6.6 GM/DL (6.4-8.2)
[2018-12-20 16:33] LABS: HEMOGLOBIN A1c 9.9 %
[2018-12-20 16:36] LABS: TOTAL 25(OH) VITAMIN D 37.1 NG/ML (30.0-100.0)
== END ==
LOC: M SFHCPLAZ 14:18
PROVIDERS: ATTEND Nurse Practitioner Family
DX: M81.0 Age-related osteoporosis without current pathological fracture (principal); E11.21 Type 2 diabetes mellitus with diabetic nephropathy; N18.3 Chronic kidney disease, stage 3 (moderate); D50.9 Iron deficiency anemia, unspecified; E78.49 Other hyperlipidemia

== ENCOUNTER → 2019-01-18 | Outpatient (CLI) | payer MEDICARE ==
[2019-01-18 16:43] LABS: CALCIUM LEVEL 8.9 MG/DL (8.8-10.2); CREATININE FOR GFR 1.75 MG/DL (0.55-1.30); GLOMERULAR FILTRATION RATE 30.5 (>39); POTASSIUM SERUM 5.3 MEQ/L (3.5-5.1)
== END ==
LOC: M WUC 13:10
PROVIDERS: ATTEND Nurse Practitioner Family
DX: E11.21 Type 2 diabetes mellitus with diabetic nephropathy (principal)

== ENCOUNTER → 2019-03-20 | Outpatient (REF) | payer MEDICARE ==
[~2019-03-20] MED LIST changes: +CALC12504 PO; -CALC500T36 PO; -MAGN1TAB25 PO; +MAGN1TAB26 PO; +VITA100018 PO; -VITA100072 PO
[2019-03-20 19:49] LABS: BILIRUBIN,TOTAL 0.6 MG/DL (0.2-1.0); CALCIUM LEVEL 9.4 MG/DL (8.8-10.2); CREATININE FOR GFR 1.65 MG/DL (0.55-1.30); GLOMERULAR FILTRATION RATE 32.6 (>39); POTASSIUM SERUM 5.3 MEQ/L (3.5-5.1); TOTAL PROTEIN 7.2 GM/DL (6.4-8.2)
[2019-03-20 21:29] LABS: HEMOGLOBIN A1c 7.6 %
== END ==
LOC: M SFHCPLAZ 14:45
PROVIDERS: ATTEND Nurse Practitioner Family
DX: E11.21 Type 2 diabetes mellitus with diabetic nephropathy (principal); I12.9 Hypertensive chronic kidney disease with stage 1 through stage 4 chronic kidney disease, or unspecified chronic kidney disease; N18.3 Chronic kidney disease, stage 3 (moderate)

== ENCOUNTER → 2019-06-21 | Outpatient (REF) | payer MEDICARE ==
[~2019-06-21] MED LIST changes: -CALC12504 PO; +CALC500T61 PO
[2019-06-21 17:51] LABS: ALBUMIN 3.8 GM/DL (3.2-5.2); BILIRUBIN,TOTAL 0.5 MG/DL (0.2-1.0); CALCIUM LEVEL 8.9 MG/DL (8.8-10.2); CREATININE FOR GFR 1.6 MG/DL (0.55-1.30); GLOMERULAR FILTRATION RATE 33.8 (>39); TOTAL PROTEIN 7.2 GM/DL (6.4-8.2)
[2019-06-21 18:38] LABS: HEMOGLOBIN A1c 8.2 %
== END ==
LOC: M SFHCPLAZ 14:36
PROVIDERS: ATTEND Nurse Practitioner Family
DX: E11.21 Type 2 diabetes mellitus with diabetic nephropathy (principal); E78.49 Other hyperlipidemia

== ENCOUNTER → 2019-09-05 | Outpatient (CLI) | payer MEDICARE, OTHER ==
[~2019-09-05] MED LIST changes: -OMEP40CA2 PO; +OMEP40CA97 PO; +RANI-356 PO; -RANI1TAB6 PO
--- NOTE | 2019-09-05 15:23 | REPMRS ---
Patient History The patient states she had a clinical breast exam in 09/2019. Patient is postmenopausal and is nulliparous. No known family history of cancer. No Hormone Replacement Therapy Digital Woman Screen Mammo: September 05, 2019 - Exam #: [id number] Bilateral CC and MLO view(s) were taken. Technologist: Naz Wiseman, Technologist Prior study comparison: September 02, 2018, bilateral digital woman screen mammo performed at [facility]. August 25, 2017, digital woman screen mammo performed at [facility]. June 17, 2016, digital woman screen mammo performed at [facility]. FINDINGS: The breast tissue is heterogeneously dense. This may lower the sensitivity of mammography. There are benign secretory microcalcifications again noted diffusely and dispersed bilaterally. There is a moderate amount of heterogeneously dense fibroglandular tissue which is fairly symmetric. There is no interval development of dominant mass, architectural distortion, or grouped microcalcification typical of malignancy. There has been no change in the appearance of the mammogram from the prior studies. 3-D tomosynthesis shows no additional findings. Assessment: BI-RADS/ACR category 2 mammogram. Benign Findings. Recommendation Routine screening mammogram of both breasts in 1 year (for women over age 40). This patient's Lifetime Breast Cancer RIsk is estimated at 5.6 %. This mammogram was interpreted with the aid of an FDA-approved computer-aided dectection system. Electronically Signed By: Arnoldo Menjivar MD 09/05/19 [id number]
== END ==
LOC: M WHC 13:34
PROVIDERS: ATTEND Nurse Practitioner Women's Health
DX: Z12.31 Encounter for screening mammogram for malignant neoplasm of breast (principal); Z78.0 Asymptomatic menopausal state; R92.0 Mammographic microcalcification found on diagnostic imaging of breast
CPT/HCPCS: 77063; 77067; G0463

== ENCOUNTER → 2019-11-28 | Outpatient (CLI) | payer MEDICARE, MEDICAID ==
[~2019-11-28] MED LIST changes: -RANI-356 PO; +RANI-397 PO
[2019-11-28 18:34] LABS: BILIRUBIN,TOTAL 0.6 MG/DL (0.2-1.0); CALCIUM LEVEL 9.8 MG/DL (8.8-10.2); CHOLESTEROL RISK RATIO 2.827 (<5); CREATININE FOR GFR 1.87 MG/DL (0.55-1.30); GLOMERULAR FILTRATION RATE 28.2 (>39); MAGNESIUM LEVEL 1.5 MG/DL (1.8-2.4); POTASSIUM SERUM 5.4 MEQ/L (3.5-5.1); TOTAL PROTEIN 7.5 GM/DL (6.4-8.2)
[2019-11-28 18:40] LABS: TOTAL 25(OH) VITAMIN D 62.4 NG/ML (30.0-100.0)
[2019-11-28 19:03] LABS: MALB URINE SIEMENS 38.5 MG/L; MAU/CREAT RATIO 16.5 MCG/MG (0.0-30.0)
== END ==
LOC: M PLALAB 12:42
PROVIDERS: ATTEND Nurse Practitioner Family
DX: E11.21 Type 2 diabetes mellitus with diabetic nephropathy (principal); E78.2 Mixed hyperlipidemia; E55.9 Vitamin D deficiency, unspecified; Z79.4 Long term (current) use of insulin

== ENCOUNTER → 2020-03-22 | Outpatient (REF) | payer OTHER ==
[2020-03-22 17:28] LABS: ALBUMIN 3.8 GM/DL (3.2-5.2); BILIRUBIN,TOTAL 0.6 MG/DL (0.2-1.0); CALCIUM LEVEL 9.4 MG/DL (8.8-10.2); CREATININE FOR GFR 1.68 MG/DL (0.55-1.30); GLOMERULAR FILTRATION RATE 31.9 (>39); POTASSIUM SERUM 5.1 MEQ/L (3.5-5.1); TOTAL PROTEIN 7.4 GM/DL (6.4-8.2)
[2020-03-22 17:34] LABS: HEMOGLOBIN A1c 7.9 %
== END ==
LOC: M SFHCPLAZ 14:49
PROVIDERS: ATTEND Nurse Practitioner Family
DX: E11.21 Type 2 diabetes mellitus with diabetic nephropathy (principal)
CPT/HCPCS: 36415; 80053; 83036; G0463

== ENCOUNTER → 2020-07-10 | Outpatient (CLI) | payer OTHER ==
[~2020-07-10] MED LIST changes: +FURO20TA2; +TRUL10IN
[2020-07-10 17:07] LABS: ALBUMIN 3.8 GM/DL (3.2-5.2); BILIRUBIN,TOTAL 0.7 MG/DL (0.2-1.0); CALCIUM LEVEL 9.3 MG/DL (8.8-10.2); CHOLESTEROL RISK RATIO 2.524 (<5); CREATININE FOR GFR 1.66 MG/DL (0.55-1.30); GLOMERULAR FILTRATION RATE 32.3 (>39); POTASSIUM SERUM 4.9 MEQ/L (3.5-5.1); TOTAL PROTEIN 7.3 GM/DL (6.4-8.2)
[2020-07-10 17:13] LABS: TOTAL 25(OH) VITAMIN D 50.7 NG/ML (30.0-100.0)
== END ==
LOC: M PLALAB 13:22
PROVIDERS: ATTEND Nurse Practitioner Family
DX: E55.9 Vitamin D deficiency, unspecified (principal); I10 Essential (primary) hypertension; E78.2 Mixed hyperlipidemia; Z79.899 Other long term (current) drug therapy

== ENCOUNTER 2020-07-20 18:45 | Emergency (ER) | payer OTHER ==
[~2020-07-20] VITALS: Ht 147.3 cm; Wt 74.2 kg
[~2020-07-20 18:45] MED LIST changes: -FURO20TA2; -TRUL10IN
[2020-07-20] MEDS ORDERED: TRUL10IN (19:08)
[2020-07-20] MEDS ORDERED: FURO20TA2 (19:08)
[2020-07-20] MEDS ORDERED: ACETAMINOPHEN 325 MG TAB PO ONE (19:30)
--- NOTE | 2020-07-20 20:19 | REPVR ---
PROCEDURE INFORMATION: Exam: XR Left Shoulder Exam date and time: 07/20/2020 7:40 PM Age: 74 years old Clinical indication: Other: Left shoulder bony tenderness TECHNIQUE: Imaging protocol: XR Left shoulder. Views: 2 or more views. COMPARISON: No relevant prior studies available. FINDINGS: Bones/joints: Generalized decrease in bone density. No radiographic evidence of fracture. Degenerative changes within the cervical spine. Small marginal osteophytes border the glenohumeral joint inferiorly Soft tissues: Calcification in the soft tissues superior and lateral to the humeral head IMPRESSION: 1. No radiographic evidence of fracture. 2. Calcific tendinitis Electronically signed by: Yane Whaley On 07/20/2020 20:19:28 PM
--- NOTE | 2020-07-20 20:28 | REPVR ---
PROCEDURE INFORMATION: Exam: CT Cervical Spine Without Contrast Exam date and time: 07/20/2020 7:48 PM Age: 74 years old Clinical indication: Pain; Other: Vertebral tenderness into left shoulder TECHNIQUE: Imaging protocol: Computed tomography images of the cervical spine without contrast. Radiation optimization: All CT scans at this facility use at least one of these dose optimization techniques: automated exposure control; mA and/or kV adjustment per patient size (includes targeted exams where dose is matched to clinical indication); or iterative reconstruction. COMPARISON: No relevant prior studies available. FINDINGS: Vertebrae: No acute fracture. Normal alignment. C2-C3: No significant disc protrusion. No severe spinal canal stenosis. No significant neural foraminal narrowing. C3-C4: Uncovertebral hypertrophy. Hypertrophic facet arthropathy particularly on the left. Broad-based posterior central disc bulge.. No severe spinal canal stenosis. No significant neural foraminal narrowing. C4-C5: Circumferential annulus bulge.. Uncovertebral hypertrophy particularly on the left. No severe spinal canal stenosis. No significant neural foraminal narrowing. C5-C6: Posterior disc osteophyte ridge. Narrowed intervertebral disc space.. Uncovertebral hypertrophy. No severe spinal canal stenosis. Moderate bilateral foraminal stenosis.. C6-C7: Circumferential annulus bulge.Large anterior marginal osteophytes. Uncovertebral hypertrophy particularly on the left.. No severe spinal canal stenosis. No significant neural foraminal narrowing. C7-T1: No significant disc protrusion. No severe spinal canal stenosis. No significant neural foraminal narrowing. Soft tissues: Calcification within the ligamentum nuchae posterior to C7. Calcification anterior longitudinal ligament C3-C4. Lungs: Lung apices are normal. IMPRESSION: No acute findings. Degenerative disc disease and facet arthropathy. No stenosis Electronically signed by: Yane Whaley On 07/20/2020 20:28:33 PM
[2020-07-20 21:33] VITALS: BP 163/70
== END 2020-07-20 21:40 | disposition home or self-care (01) ==
LOC: M ED 18:45
DX: M75.32 Calcific tendinitis of left shoulder (principal); M25.78 Osteophyte, vertebrae; M54.2 Cervicalgia; G89.29 Other chronic pain; M54.5 Low back pain; E11.9 Type 2 diabetes mellitus without complications; I10 Essential (primary) hypertension; E78.5 Hyperlipidemia, unspecified; M81.0 Age-related osteoporosis without current pathological fracture; H54.8 Legal blindness, as defined in USA; Z79.4 Long term (current) use of insulin; Z79.899 Other long term (current) drug therapy

== ENCOUNTER → 2020-11-08 | Outpatient (REF) | payer OTHER ==
[~2020-11-08] MED LIST changes: +FURO20TA2; +TRUL10IN
[2020-11-08 14:29] LABS: ALBUMIN 3.9 GM/DL (3.2-5.2); BILIRUBIN,TOTAL 0.8 MG/DL (0.2-1.0); CALCIUM LEVEL 9.4 MG/DL (8.8-10.2); CHOLESTEROL RISK RATIO 2.774 (<5); CREATININE FOR GFR 1.93 MG/DL (0.55-1.30); GLOMERULAR FILTRATION RATE 27.1 (>39); POTASSIUM SERUM 5.3 MEQ/L (3.5-5.1)
[2020-11-08 15:11] LABS: HEMOGLOBIN A1c 7.6 %
== END ==
LOC: M PLALAB 10:43
PROVIDERS: ATTEND Nurse Practitioner Family
DX: E11.21 Type 2 diabetes mellitus with diabetic nephropathy (principal); E78.2 Mixed hyperlipidemia; E55.9 Vitamin D deficiency, unspecified

== ENCOUNTER → 2020-11-11 | Outpatient (REF) | payer OTHER ==
[2020-11-11 16:20] LABS: CREATININE, URINE 69.3 MG/DL; MALB URINE SIEMENS 17.7 MG/L; MAU/CREAT RATIO 25.5 MCG/MG (0.0-30.0)
== END ==
LOC: M SFHCPLAZ 15:14
PROVIDERS: ATTEND Nurse Practitioner Family
DX: E11.21 Type 2 diabetes mellitus with diabetic nephropathy (principal); E55.9 Vitamin D deficiency, unspecified; Z79.4 Long term (current) use of insulin; Z79.899 Other long term (current) drug therapy

== ENCOUNTER → 2020-11-26 | Outpatient (REF) | payer OTHER ==
[~2020-11-26] MED LIST changes: +LISI10TA22 PO; -LISI10TA4 PO
[2020-11-28 18:40] LABS: PERCENT SATURATION 16.3 % (13.2-45.0)
== END ==
LOC: M LAB REF 16:55
PROVIDERS: ATTEND Nurse Practitioner Family
DX: D50.9 Iron deficiency anemia, unspecified (principal)

== ENCOUNTER → 2021-05-16 | Outpatient (CLI) | payer MEDICARE ==
[~2021-05-16] MED LIST changes: +OMEP40CA4 PO; -OMEP40CA97 PO
[2021-05-16 17:59] LABS: ALBUMIN 3.9 GM/DL (3.2-5.2); BILIRUBIN,TOTAL 0.8 MG/DL (0.2-1.0); CALCIUM LEVEL 9.2 MG/DL (8.8-10.2); CREATININE FOR GFR 1.61 MG/DL (0.55-1.30); GLOMERULAR FILTRATION RATE 33.4 (>39); HEMOGLOBIN A1c 7.5 %; POTASSIUM SERUM 5.1 MEQ/L (3.5-5.1); TOTAL PROTEIN 7.4 GM/DL (6.4-8.2)
== END ==
LOC: M PLALAB 14:48
PROVIDERS: ATTEND Nurse Practitioner Family
DX: E11.21 Type 2 diabetes mellitus with diabetic nephropathy (principal)
CPT/HCPCS: 36415; 80053; 83036; G0463

== ENCOUNTER → 2021-05-27 | Outpatient (REF) | payer MEDICARE | LOC: M LAB REF 18:30 | PROVIDERS: ATTEND Nurse Practitioner Family | DX: E83.42 Hypomagnesemia (principal) ==

== ENCOUNTER → 2021-06-27 | Outpatient (REF) | payer MEDICARE ==
[2021-06-27 19:03] LABS: MAGNESIUM LEVEL 1.6 MG/DL (1.8-2.4); PERCENT SATURATION 16.6 % (13.2-45.0)
== END ==
LOC: M LAB REF 18:01
PROVIDERS: ATTEND Nurse Practitioner Family
DX: D50.9 Iron deficiency anemia, unspecified (principal); E83.42 Hypomagnesemia

== ENCOUNTER → 2021-07-14 | Outpatient (CLI) | payer MEDICARE ==
[2021-07-14 16:49] LABS: MALB URINE SIEMENS 10.1 MG/L; MAU/CREAT RATIO 25.8 MCG/MG (0.0-30.0)
[2021-07-14 17:13] LABS: ALBUMIN 3.8 GM/DL (3.2-5.2); BILIRUBIN,TOTAL 0.6 MG/DL (0.2-1.0); CALCIUM LEVEL 9.7 MG/DL (8.8-10.2); CHOLESTEROL RISK RATIO 3.425 (<5); CREATININE FOR GFR 1.69 MG/DL (0.55-1.30); GLOMERULAR FILTRATION RATE 31.6 (>39); POTASSIUM SERUM 5.5 MEQ/L (3.5-5.1); TOTAL PROTEIN 7.6 GM/DL (6.4-8.2)
[2021-07-14 17:25] LABS: TOTAL 25(OH) VITAMIN D 44.1 NG/ML (30.0-100.0)
[2021-07-14 17:40] LABS: HEMOGLOBIN A1c 8.7 %
== END ==
LOC: M PLALAB 14:04
PROVIDERS: ATTEND Nurse Practitioner Family
DX: E11.21 Type 2 diabetes mellitus with diabetic nephropathy (principal); E78.2 Mixed hyperlipidemia; E55.9 Vitamin D deficiency, unspecified; Z79.899 Other long term (current) drug therapy

== ENCOUNTER → 2021-07-15 | Outpatient (CLI) | payer MEDICARE ==
[2021-07-15 17:48] LABS: CALCIUM LEVEL 10.1 MG/DL (8.8-10.2); CREATININE FOR GFR 1.88 MG/DL (0.55-1.30); GLOMERULAR FILTRATION RATE 27.9 (>39); POTASSIUM SERUM 5.1 MEQ/L (3.5-5.1)
== END ==
LOC: M PLALAB 14:29
PROVIDERS: ATTEND Nurse Practitioner Family
DX: E87.5 Hyperkalemia (principal)
CPT/HCPCS: 36415; 80048; G0463

== ENCOUNTER → 2021-07-29 | Outpatient (REF) | payer MEDICARE | LOC: M LAB REF 17:14 | PROVIDERS: ATTEND Nurse Practitioner Family | DX: E83.42 Hypomagnesemia (principal) ==

== ENCOUNTER → 2021-10-30 | Outpatient (REF) | payer MEDICARE | LOC: M LAB REF 13:00 | PROVIDERS: ATTEND Nurse Practitioner Family | DX: E83.42 Hypomagnesemia (principal) ==

== ENCOUNTER → 2021-11-21 | Outpatient (CLI) | payer MEDICARE ==
[~2021-11-21] MED LIST changes: -CEFD1CAP8 PO; +CEFD300C41 PO
[2021-11-21 17:39] LABS: ALBUMIN 3.8 GM/DL (3.2-5.2); BILIRUBIN,TOTAL 0.5 MG/DL (0.2-1.0); CALCIUM LEVEL 9.3 MG/DL (8.8-10.2); CHOLESTEROL RISK RATIO 2.69 (<5); CREATININE FOR GFR 2.33 MG/DL (0.55-1.30); GLOMERULAR FILTRATION RATE 21.7 (>39); POTASSIUM SERUM 5.1 MEQ/L (3.5-5.1); TOTAL PROTEIN 7.2 GM/DL (6.4-8.2)
[2021-11-21 17:41] LABS: CREATININE, URINE 44.6 MG/DL; MALB URINE SIEMENS < 5.0 MG/L; MAU/CREAT RATIO 11.2 MCG/MG (0.0-30.0)
[2021-11-21 17:47] LABS: TOTAL 25(OH) VITAMIN D 43.2 NG/ML (30.0-100.0)
[2021-11-21 17:59] LABS: HEMOGLOBIN A1c 6.3 %
== END ==
LOC: M PLALAB 14:26
PROVIDERS: ATTEND Nurse Practitioner Family
DX: E11.21 Type 2 diabetes mellitus with diabetic nephropathy (principal); E55.9 Vitamin D deficiency, unspecified; E78.2 Mixed hyperlipidemia; Z79.899 Other long term (current) drug therapy

== ENCOUNTER → 2022-01-15 | Outpatient (CLI) | payer MEDICARE | LOC: M WHC 09:09 | PROVIDERS: ATTEND Physician Assistant Medical | DX: Z12.31 Encounter for screening mammogram for malignant neoplasm of breast (principal) ==

== ENCOUNTER → 2022-04-24 | Outpatient (CLI) | payer MEDICARE ==
[2022-04-24 17:18] LABS: BASO # 0.1 10^3/uL (0.0-0.2); EOS # 0.5 10^3/uL (0.0-0.5); EOS % 7.8 % (0.0-3.0); HEMATOCRIT 34.2 % (36.0-47.0); HEMOGLOBIN 10.3 g/dl (12.0-15.5); LYMPH # 2.1 10^3/uL (1.5-5.0); LYMPH % 35.1 % (24.0-44.0); MEAN CORPUSCULAR HEMOGLOBIN 27.8 pg (27.0-33.0); MEAN CORPUSCULAR HGB CONC 30.1 g/dl (32.0-36.5); MEAN CORPUSCULAR VOLUME 92.4 fl (80.0-96.0); MONO # 0.6 10^3/uL (0.0-0.8); MONO % 9.8 % (2.0-8.0); NEUTROPHILS # 2.8 10^3/uL (1.5-8.5); NEUTROPHILS % 46.1 % (36.0-66.0); PLATELET COUNT, AUTOMATED 202 10^3/uL (150-450)
[2022-04-24 17:19] LABS: ALBUMIN 3.8 GM/DL (3.2-5.2); ALT/SGPT 26 U/L (12-78); BILIRUBIN,TOTAL 0.4 MG/DL (0.2-1.0); BLOOD UREA NITROGEN 27 MG/DL (7-18); CALCIUM LEVEL 8.8 MG/DL (8.8-10.2); CARBON DIOXIDE LEVEL 30 MEQ/L (21-32); CHLORIDE LEVEL 107 MEQ/L (98-107); CHOLESTEROL LEVEL 161 MG/DL (<200); CHOLESTEROL RISK RATIO 2.683 (<5); CREATININE FOR GFR 1.82 MG/DL (0.55-1.30); FERRITIN 148 NG/ML (8-252); FREE T4 1.03 NG/DL (0.76-1.46); GLOMERULAR FILTRATION RATE 28.9 (>39); GLUCOSE, FASTING 116 MG/DL (70-100); HDL CHOLESTEROL 60 MG/DL (>40); IRON (FE) 62 UG/DL (50-170); LDL CHOLESTEROL 75 MG/DL (<100); NON-HDL-C 101 MG/DL; POTASSIUM SERUM 4.9 MEQ/L (3.5-5.1); SODIUM LEVEL 142 MEQ/L (136-145); TOTAL PROTEIN 7.6 GM/DL (6.4-8.2); TRIGLYCERIDES LEVEL 132 MG/DL (<150)
[2022-04-24 17:28] LABS: HEMOGLOBIN A1c 5.9 %
[2022-04-24 17:30] LABS: PTH INTACT 124.9 PG/ML (18.5-88.0); VITAMIN B12 LEVEL > 2000 PG/ML (247-911)
== END ==
LOC: M PLALAB 14:34
PROVIDERS: ATTEND Physician Assistant Medical
DX: D50.9 Iron deficiency anemia, unspecified (principal); G63 Polyneuropathy in diseases classified elsewhere; E11.21 Type 2 diabetes mellitus with diabetic nephropathy; E55.9 Vitamin D deficiency, unspecified; E78.2 Mixed hyperlipidemia; F41.1 Generalized anxiety disorder; I10 Essential (primary) hypertension; Z79.899 Other long term (current) drug therapy

== ENCOUNTER → 2022-05-29 | Outpatient (REF) | payer MEDICARE ==
[2022-05-29 18:26] LABS: PERCENT SATURATION 21.6 % (13.2-45.0)
== END ==
LOC: M LAB REF 16:49
PROVIDERS: ATTEND Nurse Practitioner Family
DX: D50.9 Iron deficiency anemia, unspecified (principal)

== ENCOUNTER → 2022-11-19 | Outpatient (CLI) | payer MEDICARE, OTHER ==
[2022-11-19 16:26] LABS: CREATININE, URINE 25.2 MG/DL; MALB URINE SIEMENS < 3.0 MG/DL; MAU/CREAT RATIO 11.9 MCG/MG (0.0-30.0)
[2022-11-19 16:27] LABS: ALBUMIN 3.7 G/DL (3.2-5.2); BILIRUBIN,TOTAL 0.7 MG/DL (0.3-1.2); CALCIUM LEVEL 9.3 MG/DL (8.3-10.6); CREATININE FOR GFR 1.63 MG/DL (0.55-1.30); GLOMERULAR FILTRATION RATE 32.7 (>39); POTASSIUM SERUM 5.1 MMOL/L (3.5-5.1); TOTAL PROTEIN 6.8 G/DL (5.7-8.2)
[2022-11-19 17:46] LABS: HEMOGLOBIN A1c 5.4 % (4.0-6.0)
== END ==
LOC: M PLALAB 13:45
PROVIDERS: ATTEND Physician Assistant Medical
DX: E11.21 Type 2 diabetes mellitus with diabetic nephropathy (principal); N18.32 Chronic kidney disease, stage 3b; E11.22 Type 2 diabetes mellitus with diabetic chronic kidney disease

== ENCOUNTER 2023-01-17 11:36 | Emergency (ER) | payer MEDICARE, OTHER ==
[~2023-01-17] VITALS: Ht 147.3 cm; Wt 68.1 kg
[2023-01-17 13:34] LABS: LIPASE 63 U/L (12-53)
[2023-01-17 13:36] LABS: AMYLASE 89 U/L (30-118)
[2023-01-17 13:37] LABS: CK-MB VALUE MASS < 1.0 NG/ML (<3.6); CPK CREATINE PHOSPHOKINASE 134 U/L (34-145); MB/CK RELATIVE INDEX 0.74 (< OR =4)
[2023-01-17] MEDS ORDERED: MIRA3350 PO (13:58)
[2023-01-17 14:07] VITALS: BP 158/72
== END 2023-01-17 14:13 | disposition home or self-care (01) ==
LOC: M ED 12:57
DX: K59.00 Constipation, unspecified (principal); E11.9 Type 2 diabetes mellitus without complications; I10 Essential (primary) hypertension; K21.9 Gastro-esophageal reflux disease without esophagitis; E78.5 Hyperlipidemia, unspecified; J44.9 Chronic obstructive pulmonary disease, unspecified; Z79.84 Long term (current) use of oral hypoglycemic drugs; Z79.02 Long term (current) use of antithrombotics/antiplatelets; Z79.811 Long term (current) use of aromatase inhibitors; Z79.899 Other long term (current) drug therapy

== ENCOUNTER → 2023-01-18 | Outpatient (CLI) | payer MEDICARE, OTHER ==
[~2023-01-18] MED LIST changes: +MIRA3350 PO
== END ==
LOC: M WHC 10:18
PROVIDERS: ATTEND Physician Assistant Medical
DX: Z12.31 Encounter for screening mammogram for malignant neoplasm of breast (principal)

== ENCOUNTER 2023-03-16 16:09 | Emergency (ER) | payer OTHER, MEDICAID ==
[~2023-03-16] VITALS: Ht 147.3 cm; Wt 67.7 kg
[2023-03-16 17:57] LABS: BASO # 0.1 10^3/uL (0.0-0.2); BASO % 1.1 % (0.0-1.0); EOS # 0.2 10^3/uL (0.0-0.5); EOS % 3.7 % (0.0-3.0); HEMATOCRIT 30.7 % (36.0-47.0); HEMOGLOBIN 9.8 g/dl (12.0-15.5); LYMPH # 1.6 10^3/uL (1.5-5.0); LYMPH % 30.1 % (24.0-44.0); MEAN CORPUSCULAR HEMOGLOBIN 27.8 pg (27.0-33.0); MEAN CORPUSCULAR HGB CONC 31.9 g/dl (32.0-36.5); MONO # 0.5 10^3/uL (0.0-0.8); MONO % 9.6 % (2.0-8.0); NEUTROPHILS % 55.3 % (36.0-66.0); PLATELET COUNT, AUTOMATED 175 10^3/uL (150-450); RED BLOOD COUNT 3.53 10^6/uL (4.00-5.40); WHITE BLOOD COUNT 5.4 10^3/uL (4.0-10.0)
[2023-03-16 18:18] LABS: LIPASE 48 U/L (12-53)
[2023-03-16 18:20] LABS: ALBUMIN 3.9 G/DL (3.2-5.2); ALKALINE PHOSPHATASE 73 U/L (46-116); ALT/SGPT 21 U/L (7.0-40); AST/SGOT < 8 U/L (<34); BILIRUBIN,DIRECT 0.3 MG/DL (<0.4); BILIRUBIN,TOTAL 0.9 MG/DL (0.3-1.2); BLOOD UREA NITROGEN 19 MG/DL (9-23); CALCIUM LEVEL 9.5 MG/DL (8.3-10.6); CARBON DIOXIDE LEVEL 28 MMOL/L (20-31); CHLORIDE LEVEL 102 MMOL/L (98-107); GLUCOSE, FASTING 104 MG/DL (74-106); POTASSIUM SERUM 4.8 MMOL/L (3.5-5.1); SODIUM LEVEL 137 MMOL/L (136-145); TOTAL PROTEIN 7.1 G/DL (5.7-8.2)
[2023-03-17] MEDS ORDERED: ONDANSETRON 4MG ORAL DISINTEGRATING TAB PO ONE (01:20)
[2023-03-17] MEDS ORDERED: ONDA4TAB6 PO (01:32)
[2023-03-17 02:14] VITALS: BP 158/66
== END 2023-03-17 02:17 | disposition home or self-care (01) ==
LOC: M ED 16:09
DX: K52.9 Noninfective gastroenteritis and colitis, unspecified (principal); E11.9 Type 2 diabetes mellitus without complications; K21.9 Gastro-esophageal reflux disease without esophagitis; I10 Essential (primary) hypertension; E78.5 Hyperlipidemia, unspecified; G43.909 Migraine, unspecified, not intractable, without status migrainosus; Z79.1 Long term (current) use of non-steroidal anti-inflammatories (NSAID); Z79.02 Long term (current) use of antithrombotics/antiplatelets; Z79.811 Long term (current) use of aromatase inhibitors; Z79.83 Long term (current) use of bisphosphonates; Z79.899 Other long term (current) drug therapy

== ENCOUNTER → 2023-03-18 | Outpatient (CLI) | payer OTHER, MEDICAID ==
[~2023-03-18] MED LIST changes: +ONDA4TAB6 PO
[2023-03-18 15:56] LABS: BASO # 0.1 10^3/uL (0.0-0.2); BASO % 1.1 % (0.0-1.0); EOS # 0.4 10^3/uL (0.0-0.5); EOS % 5.7 % (0.0-3.0); HEMATOCRIT 31.5 % (36.0-47.0); HEMOGLOBIN 9.9 g/dl (12.0-15.5); LYMPH # 2.2 10^3/uL (1.5-5.0); LYMPH % 32.5 % (24.0-44.0); MEAN CORPUSCULAR HEMOGLOBIN 28.2 pg (27.0-33.0); MEAN CORPUSCULAR HGB CONC 31.4 g/dl (32.0-36.5); MEAN CORPUSCULAR VOLUME 89.7 fl (80.0-96.0); MONO # 0.7 10^3/uL (0.0-0.8); MONO % 10.4 % (2.0-8.0); NEUTROPHILS # 3.3 10^3/uL (1.5-8.5); NEUTROPHILS % 50.1 % (36.0-66.0); PLATELET COUNT, AUTOMATED 206 10^3/uL (150-450); RED BLOOD COUNT 3.51 10^6/uL (4.00-5.40); WHITE BLOOD COUNT 6.6 10^3/uL (4.0-10.0)
[2023-03-18 16:30] LABS: FREE T4 1.33 NG/DL (0.89-1.76)
[2023-03-18 16:31] LABS: ALBUMIN 3.9 G/DL (3.2-5.2); ALKALINE PHOSPHATASE 76 U/L (46-116); ALT/SGPT 22 U/L (7.0-40); AST/SGOT 19 U/L (<34); BILIRUBIN,TOTAL 0.8 MG/DL (0.3-1.2); BLOOD UREA NITROGEN 24 MG/DL (9-23); CALCIUM LEVEL 9.4 MG/DL (8.3-10.6); CARBON DIOXIDE LEVEL 29 MMOL/L (20-31); CHLORIDE LEVEL 102 MMOL/L (98-107); CREATININE FOR GFR 1.68 MG/DL (0.55-1.30); FERRITIN 105.1 NG/ML (7.3-270.7); GLOMERULAR FILTRATION RATE 31.6 (>39); GLUCOSE, FASTING 108 MG/DL (74-106); IRON (FE) 55 UG/DL (50-170); POTASSIUM SERUM 4.8 MMOL/L (3.5-5.1); SODIUM LEVEL 136 MMOL/L (136-145); TOTAL PROTEIN 7.1 G/DL (5.7-8.2)
[2023-03-18 16:32] LABS: THYROID STIMULATING HORMONE 0.972 uIU/ML (0.55-4.78)
[2023-03-18 16:41] LABS: VITAMIN B12 LEVEL > 2000 PG/ML (211-911)
== END ==
LOC: M PLALAB 12:27
PROVIDERS: ATTEND Physician Assistant Medical
DX: R11.2 Nausea with vomiting, unspecified (principal); R41.3 Other amnesia; D50.9 Iron deficiency anemia, unspecified

== ENCOUNTER → 2023-03-18 | Outpatient (REF) | payer OTHER, MEDICAID | LOC: M SFHCPLAZ 12:10 | PROVIDERS: ATTEND Physician Assistant Medical | DX: D50.9 Iron deficiency anemia, unspecified (principal) ==

== ENCOUNTER → 2023-05-20 | Outpatient (CLI) | payer OTHER, MEDICAID ==
[2023-05-20 18:34] LABS: BASO # 0.1 10^3/uL (0.0-0.2); BASO % 0.8 % (0.0-1.0); EOS # 0.2 10^3/uL (0.0-0.5); EOS % 3.3 % (0.0-3.0); HEMATOCRIT 30.7 % (36.0-47.0); HEMOGLOBIN 9.7 g/dl (12.0-15.5); LYMPH # 1.2 10^3/uL (1.5-5.0); LYMPH % 17.6 % (24.0-44.0); MEAN CORPUSCULAR HGB CONC 31.6 g/dl (32.0-36.5); MEAN CORPUSCULAR VOLUME 88.7 fl (80.0-96.0); MONO # 0.8 10^3/uL (0.0-0.8); MONO % 11.5 % (2.0-8.0); NEUTROPHILS # 4.4 10^3/uL (1.5-8.5); NEUTROPHILS % 66.5 % (36.0-66.0); PLATELET COUNT, AUTOMATED 229 10^3/uL (150-450); RED BLOOD COUNT 3.46 10^6/uL (4.00-5.40); WHITE BLOOD COUNT 6.6 10^3/uL (4.0-10.0)
[2023-05-20 19:02] LABS: ALBUMIN 3.6 G/DL (3.2-5.2); BILIRUBIN,TOTAL 0.8 MG/DL (0.3-1.2); CALCIUM LEVEL 9.2 MG/DL (8.3-10.6); CREATININE FOR GFR 1.22 MG/DL (0.55-1.30); GLOMERULAR FILTRATION RATE 45.7 (>39); POTASSIUM SERUM 5.1 MMOL/L (3.5-5.1)
[2023-05-20 19:04] LABS: FERRITIN 100.8 NG/ML (7.3-270.7)
[2023-05-22 15:09] LABS: H PYLORI SERUM QUANT IGM <9.0 units (0.0-8.9); H PYLORI SERUM QUANT IgG ABY 0.22 (0.00-0.79)
== END ==
LOC: M PLALAB 15:10
PROVIDERS: ATTEND Physician Assistant Medical
DX: N18.32 Chronic kidney disease, stage 3b (principal); K21.9 Gastro-esophageal reflux disease without esophagitis; D50.9 Iron deficiency anemia, unspecified

== ENCOUNTER 2023-05-26 13:43 | Outpatient (CLI) | payer OTHER, MEDICAID ==
[~2023-05-26] VITALS: Ht 147.3 cm; Wt 59.0 kg
[~2023-05-26 13:43] MED LIST changes: +ALBUTEROL SULFATE 2.5MG/0.5ML INH NEB SOLN INH PRN; +EPINEPHrine INJ 1 MG/ML 1ML AMP IM PRN; +diphenhydrAMINE 50MG/ML VIAL IV PRN; +methylPREDNISolone 125MG 2ML VIAL IV PRN
[2023-05-26 14:15] VITALS: BP 154/73; O2SAT 98
[2023-05-26] MEDS ORDERED: diphenhydrAMINE 25MG CAP PO ONE (14:30)
[2023-05-26] MEDS ORDERED: FERRIC CARBOXYMALTOSE INJ 750 MG in NS 250 ML (>50kg) IV ONE ×3 (15:00)
[2023-05-26] MEDS ORDERED: NS 1,000 ML IV SCH (15:00)
[2023-05-26 16:30] VITALS: BP 167/74; O2SAT 100
== END 2023-05-26 16:30 ==
LOC: M INFU 13:43
PROVIDERS: ATTEND Physician Assistant Medical
DX: D50.9 Iron deficiency anemia, unspecified (principal)
CPT/HCPCS: 96365; J1439

== ENCOUNTER 2023-06-02 14:50 | Outpatient (CLI) | payer OTHER, MEDICAID ==
[~2023-06-02] VITALS: Ht 147.3 cm; Wt 65.0 kg
[2023-06-02 14:50] VITALS: BP 142/66; O2SAT 100
[2023-06-02] MEDS ORDERED: NS 1,000 ML IV SCH (15:20)
[2023-06-02] MEDS ORDERED: diphenhydrAMINE 25MG CAP PO ONE (15:20)
[2023-06-02] MEDS ORDERED: FERRIC CARBOXYMALTOSE INJ 750 MG in NS 250 ML (>50kg) IV ONE ×3 (15:45)
[2023-06-02 17:05] VITALS: BP 162/70; O2SAT 99
== END 2023-06-02 17:05 | disposition home or self-care (01) ==
LOC: M INFU 14:50
PROVIDERS: ATTEND Physician Assistant Medical
DX: D50.9 Iron deficiency anemia, unspecified (principal)
CPT/HCPCS: 96365; J1439

== ENCOUNTER 2023-06-05 02:41 | Emergency (ER) | payer OTHER, MEDICAID ==
[~2023-06-05] VITALS: Ht 147.3 cm; Wt 66.7 kg
[~2023-06-05 02:41] MED LIST changes: -ALBUTEROL SULFATE 2.5MG/0.5ML INH NEB SOLN INH PRN; -EPINEPHrine INJ 1 MG/ML 1ML AMP IM PRN; -diphenhydrAMINE 50MG/ML VIAL IV PRN; -methylPREDNISolone 125MG 2ML VIAL IV PRN
[2023-06-05] MEDS ORDERED: ONDANSETRON 4MG TAB PO ONE (06:30)
[2023-06-05 07:26] LABS: BASO % 0.4 % (0.0-1.0); EOS # 0.1 10^3/uL (0.0-0.5); EOS % 0.8 % (0.0-3.0); HEMATOCRIT 27.9 % (36.0-47.0); HEMOGLOBIN 9.2 g/dl (12.0-15.5); LYMPH % 13.1 % (24.0-44.0); MEAN CORPUSCULAR HEMOGLOBIN 28.3 pg (27.0-33.0); MEAN CORPUSCULAR VOLUME 85.8 fl (80.0-96.0); MONO # 0.7 10^3/uL (0.0-0.8); MONO % 8.7 % (2.0-8.0); NEUTROPHILS # 6.1 10^3/uL (1.5-8.5); NEUTROPHILS % 76.5 % (36.0-66.0); PLATELET COUNT, AUTOMATED 214 10^3/uL (150-450); RED BLOOD COUNT 3.25 10^6/uL (4.00-5.40); WHITE BLOOD COUNT 7.9 10^3/uL (4.0-10.0)
[2023-06-05] MEDS ORDERED: ONDANSETRON 4MG 2ML VIAL IV ONE ×2 (11:35→18:00)
[2023-06-05 18:30] VITALS: BP 160/70; TEMP 97.6; O2SAT 98
== END 2023-06-05 18:32 | disposition short-term general hospital (02) ==
LOC: M ED 02:41
DX: S02.40CA Maxillary fracture, right side, initial encounter for closed fracture (principal); S02.31XA Fracture of orbital floor, right side, initial encounter for closed fracture; S02.40EA Zygomatic fracture, right side, initial encounter for closed fracture; W19.XXXA Unspecified fall, initial encounter; E11.9 Type 2 diabetes mellitus without complications; I10 Essential (primary) hypertension; M54.50 Low back pain, unspecified; G43.909 Migraine, unspecified, not intractable, without status migrainosus; Z79.4 Long term (current) use of insulin; Y92.009 Unspecified place in unspecified non-institutional (private) residence as the place of occurrence of the external cause; Z79.02 Long term (current) use of antithrombotics/antiplatelets; Z79.811 Long term (current) use of aromatase inhibitors; Z79.899 Other long term (current) drug therapy
CPT/HCPCS: 70450; 70486; 72125; 80047; 85025; 96374; 96375; 99284; J2405

== ENCOUNTER → 2023-06-18 | Outpatient (CLI) | payer OTHER, MEDICAID ==
[2023-06-18 16:00] LABS: BASO # 0.1 10^3/uL (0.0-0.2); BASO % 0.8 % (0.0-1.0); EOS # 0.1 10^3/uL (0.0-0.5); EOS % 1.9 % (0.0-3.0); HEMATOCRIT 27.1 % (36.0-47.0); HEMOGLOBIN 8.7 g/dl (12.0-15.5); LYMPH # 1.5 10^3/uL (1.5-5.0); LYMPH % 24.1 % (24.0-44.0); MEAN CORPUSCULAR HEMOGLOBIN 29.4 pg (27.0-33.0); MEAN CORPUSCULAR HGB CONC 32.1 g/dl (32.0-36.5); MEAN CORPUSCULAR VOLUME 91.6 fl (80.0-96.0); MONO # 0.6 10^3/uL (0.0-0.8); NEUTROPHILS # 3.9 10^3/uL (1.5-8.5); NEUTROPHILS % 62.9 % (36.0-66.0); PLATELET COUNT, AUTOMATED 197 10^3/uL (150-450); RED BLOOD COUNT 2.96 10^6/uL (4.00-5.40); WHITE BLOOD COUNT 6.2 10^3/uL (4.0-10.0)
[2023-06-18 16:30] LABS: ALBUMIN 3.5 G/DL (3.2-5.2); BILIRUBIN,TOTAL 0.6 MG/DL (0.3-1.2); CALCIUM LEVEL 8.9 MG/DL (8.3-10.6); CREATININE FOR GFR 1.17 MG/DL (0.55-1.30); POTASSIUM SERUM 5.3 MMOL/L (3.5-5.1); TOTAL PROTEIN 6.5 G/DL (5.7-8.2)
[2023-06-18 16:54] LABS: FERRITIN 1376.2 NG/ML (7.3-270.7)
== END ==
LOC: M PLALAB 14:19
PROVIDERS: ATTEND Physician Assistant Medical
DX: E87.1 Hypo-osmolality and hyponatremia (principal); D50.9 Iron deficiency anemia, unspecified

== ENCOUNTER → 2023-06-21 | Outpatient (CLI) | payer OTHER, MEDICAID | LOC: M LAB 13:32 | PROVIDERS: ATTEND Physician Assistant Medical | DX: D64.9 Anemia, unspecified (principal) ==

== ENCOUNTER 2023-06-22 08:27 | Outpatient (CLI) | payer OTHER, MEDICAID ==
[~2023-06-22] VITALS: Ht 147.3 cm; Wt 71.0 kg
[~2023-06-22 08:27] MED LIST changes: +ACETAMINOPHEN 325 MG TAB PO ONE; +diphenhydrAMINE 25MG CAP PO SCH
[2023-06-22 09:06] VITALS: BP 164/71; O2SAT 99
[2023-06-22 09:26] VITALS: BP 164/71; TEMP 97; O2SAT 99
[2023-06-22 09:40] VITALS: BP 179/73; TEMP 97; O2SAT 96
[2023-06-22 11:02] VITALS: TEMP 97.1; O2SAT 100
[2023-06-22 13:00] VITALS: BP 142/60; TEMP 96.4; O2SAT 100
== END 2023-06-22 13:10 | disposition home or self-care (01) ==
LOC: M INFU 08:27
PROVIDERS: ATTEND Physician Assistant Medical
DX: D50.9 Iron deficiency anemia, unspecified (principal)
CPT/HCPCS: 36430; 86920; P9016

== ENCOUNTER 2023-07-28 18:22 | Inpatient (IN) | payer OTHER, MEDICAID ==
[~2023-07-28] VITALS: Ht 147.3 cm; Wt 68.5 kg
[~2023-07-28 18:22] MED LIST changes: -ACETAMINOPHEN 325 MG TAB PO ONE; -diphenhydrAMINE 25MG CAP PO SCH
[2023-07-28 19:16] LABS: BASO # 0.1 10^3/uL (0.0-0.2); BASO % 0.5 % (0.0-1.0); EOS % 0.2 % (0.0-3.0); HEMATOCRIT 39.3 % (36.0-47.0); HEMOGLOBIN 12.7 g/dl (12.0-15.5); LYMPH # 0.7 10^3/uL (1.5-5.0); LYMPH % 5.5 % (24.0-44.0); MEAN CORPUSCULAR HEMOGLOBIN 29.5 pg (27.0-33.0); MEAN CORPUSCULAR HGB CONC 32.3 g/dl (32.0-36.5); MEAN CORPUSCULAR VOLUME 91.4 fl (80.0-96.0); MONO # 0.8 10^3/uL (0.0-0.8); MONO % 6.6 % (2.0-8.0); NEUTROPHILS # 10.2 10^3/uL (1.5-8.5); NEUTROPHILS % 86.9 % (36.0-66.0); PLATELET COUNT, AUTOMATED 184 10^3/uL (150-450); WHITE BLOOD COUNT 11.8 10^3/uL (4.0-10.0)
[2023-07-28 19:49] LABS: ALBUMIN 3.7 G/DL (3.2-5.2); BILIRUBIN,DIRECT 0.4 MG/DL (<0.4); BILIRUBIN,TOTAL 1.2 MG/DL (0.3-1.2); CALCIUM LEVEL 9.1 MG/DL (8.3-10.6); CREATININE FOR GFR 1.97 MG/DL (0.55-1.30); GLOMERULAR FILTRATION RATE 26.3 (>39); POTASSIUM SERUM 4.2 MMOL/L (3.5-5.1)
[2023-07-28] MEDS ORDERED: ONDANSETRON 4MG 2ML VIAL IV ONE (20:45)
[2023-07-28] MEDS ORDERED: NS 1,000 ML IV SCH (20:45)
[2023-07-28 22:47] LABS: RSV AMPLIFICATION NEGATIVE (NEGATIVE)
[2023-07-29] MEDS ORDERED: VITA500T40 PO (00:26)
[2023-07-29] MEDS ORDERED: FLON1SPR NARES (00:26)
[2023-07-29] MEDS ORDERED: LISI20TA33 PO (00:26)
[2023-07-29] MEDS ORDERED: VITA100093 PO (00:26)
[2023-07-29] MEDS ORDERED: INSU100I48 SC ×2 (00:26)
[2023-07-29] MEDS ORDERED: ASPI-161 PO (00:26)
[2023-07-29] MEDS ORDERED: FERR32TA PO (00:26)
[2023-07-29] MEDS ORDERED: ARTIDRO4 OU (00:26)
[2023-07-29] MEDS ORDERED: OCUVTAB4 PO (00:26)
[2023-07-29] MEDS ORDERED: GALA4TAB11 PO (00:26)
[2023-07-29] MEDS ORDERED: EYEL1MED TOP (00:26)
[2023-07-29] MEDS ORDERED: AMLO1TAB24 PO (00:26)
[2023-07-29] MEDS ORDERED: ACET-907 PO (00:26)
[2023-07-29] MEDS ORDERED: CALC600T86 PO (00:26)
[2023-07-29] MEDS ORDERED: HOME MED LIST COMPLETE! XX SCH (00:30)
[2023-07-29 00:49] VITALS: BP 136/60; TEMP 97.9; O2SAT 98
[2023-07-29] MEDS: NS 1,000 ML IV SCH ×2 (01:15→10:53)
[2023-07-29] MEDS: METOCLOPRAMIDE INJ 10MG/2ML VIAL IV SCH ×2 (01:15→06:29)
[2023-07-29] MEDS ORDERED: PROMETHAZINE 25 MG TAB PO ONE (02:00)
[2023-07-29] MEDS ORDERED: GLUCOSE 4GM CHEW TABLET PO PRN ×2 (04:40→10:55)
[2023-07-29] MEDS ORDERED: DEXTROSE 50% 50ML SYRINGE IV PRN ×2 (04:40→10:55)
[2023-07-29] MEDS ORDERED: GLUCAGON INJ 1MG VIAL SC PRN ×2 (04:40→10:55)
[2023-07-29 05:22] VITALS: BP 134/60; TEMP 97.9; O2SAT 96
[2023-07-29] MEDS ORDERED: INSULIN LISPRO (NovoLOG) PER UNIT SC SCH (06:00)
[2023-07-29] MEDS: ACETAMINOPHEN TAB 650MG DOSE (2X325MG) PO PRN (06:30)
[2023-07-29] MEDS ORDERED: PROMETHAZINE 25 MG TAB PO PRN (06:35)
[2023-07-29 08:26] LABS: HEMATOCRIT 35.2 % (36.0-47.0); HEMOGLOBIN 11.6 g/dl (12.0-15.5); MEAN CORPUSCULAR HEMOGLOBIN 29.8 pg (27.0-33.0); MEAN CORPUSCULAR VOLUME 90.5 fl (80.0-96.0); PLATELET COUNT, AUTOMATED 167 10^3/uL (150-450); RED BLOOD COUNT 3.89 10^6/uL (4.00-5.40); WHITE BLOOD COUNT 7.5 10^3/uL (4.0-10.0)
[2023-07-29 09:05] LABS: ALBUMIN 3.3 G/DL (3.2-5.2); BLOOD UREA NITROGEN 22 MG/DL (9-23); CALCIUM LEVEL 9.3 MG/DL (8.3-10.6); CARBON DIOXIDE LEVEL 31 MMOL/L (20-31); CHLORIDE LEVEL 106 MMOL/L (98-107); CREATININE FOR GFR 1.78 MG/DL (0.55-1.30); GLOMERULAR FILTRATION RATE 29.6 (>39); GLUCOSE, FASTING 125 MG/DL (74-106); MAGNESIUM LEVEL 1.7 MG/DL (1.8-2.4); PHOSPHORUS LEVEL 2.6 MG/DL (2.4-5.1); POTASSIUM SERUM 4.7 MMOL/L (3.5-5.1); SODIUM LEVEL 142 MMOL/L (136-145)
[2023-07-29 09:07] LABS: ALBUMIN 3.3 G/DL (3.2-5.2); BILIRUBIN,TOTAL 1.1 MG/DL (0.3-1.2); CALCIUM LEVEL 9.2 MG/DL (8.3-10.6); CREATININE FOR GFR 1.76 MG/DL (0.55-1.30); POTASSIUM SERUM 4.5 MMOL/L (3.5-5.1); TOTAL PROTEIN 6.2 G/DL (5.7-8.2)
[2023-07-29] MEDS: HEPARIN SOD (PORCINE) 5000UNITS/ML 1ML VIAL/SYRINGE SC SCH ×2 (09:07→21:02)
[2023-07-29] MEDS: FLUTICASONE PROP 0.05% NASAL SPRAY 16 GM (FLONASE) NARES SCH (09:07)
[2023-07-29] MEDS: POLYVINYL ALCOHOL OPHTH SOLN 15ML (LIQUITEARS) OU SCH ×2 (09:07→21:02)
[2023-07-29] MEDS: amLODIPine 5 MG TAB PO SCH (09:08)
[2023-07-29 09:12] LABS: ERYTHROCYTE SEDIMENTATION RATE 21 mm/hr (0-30)
[2023-07-29 09:40] LABS: FOLATE 17.37 NG/ML (>5.4); FREE T4 1.56 NG/DL (0.89-1.76); THYROID STIMULATING HORMONE 1.018 uIU/ML (0.55-4.78)
[2023-07-29 09:43] LABS: VITAMIN B12 LEVEL > 2000 PG/ML (211-911)
[2023-07-29] MEDS: ASPIRIN 81MG ENTERIC TABLET PO SCH (10:52)
[2023-07-29] MEDS: INSULIN LISPRO (NovoLOG) PER UNIT SC SCH ×3 (12:33→20:53)
[2023-07-29 14:00] VITALS: BP 113/46; TEMP 97.7; O2SAT 95
[2023-07-29 14:44] LABS: PROCALCITONIN 0.07 ng/ml
[2023-07-29] MEDS: cefTRIAXone SOD 1 GM in D5W MINI-BAG PLUS 50 ML IV SCH (17:00)
[2023-07-29] MEDS: LACTOBACILLUS ACIDOPHILUS CAP (BACID) PO SCH (17:25)
[2023-07-29 20:24] VITALS: BP 111/61; TEMP 98.1; O2SAT 99
[2023-07-29] MEDS: ATORVASTATIN 20 MG TAB PO SCH (21:02)
[2023-07-30 06:29] VITALS: BP 113/61; TEMP 97.9; O2SAT 96
[2023-07-30 07:32] LABS: BASO # 0.1 10^3/uL (0.0-0.2); BASO % 1.1 % (0.0-1.0); EOS # 0.2 10^3/uL (0.0-0.5); EOS % 2.7 % (0.0-3.0); HEMATOCRIT 35.5 % (36.0-47.0); HEMOGLOBIN 11.4 g/dl (12.0-15.5); LYMPH # 1.1 10^3/uL (1.5-5.0); LYMPH % 19.6 % (24.0-44.0); MEAN CORPUSCULAR HEMOGLOBIN 29.5 pg (27.0-33.0); MEAN CORPUSCULAR HGB CONC 32.1 g/dl (32.0-36.5); MEAN CORPUSCULAR VOLUME 91.7 fl (80.0-96.0); MONO # 0.6 10^3/uL (0.0-0.8); MONO % 10.5 % (2.0-8.0); NEUTROPHILS # 3.7 10^3/uL (1.5-8.5); NEUTROPHILS % 65.9 % (36.0-66.0); PLATELET COUNT, AUTOMATED 187 10^3/uL (150-450); RED BLOOD COUNT 3.87 10^6/uL (4.00-5.40); WHITE BLOOD COUNT 5.6 10^3/uL (4.0-10.0)
[2023-07-30 07:50] LABS: CALCIUM LEVEL 9.1 MG/DL (8.3-10.6); CREATININE FOR GFR 1.38 MG/DL (0.55-1.30); GLOMERULAR FILTRATION RATE 39.7 (>39); POTASSIUM SERUM 4.4 MMOL/L (3.5-5.1)
[2023-07-30] MEDS: INSULIN LISPRO (NovoLOG) PER UNIT SC SCH ×4 (08:57→21:00)
[2023-07-30] MEDS: LACTOBACILLUS ACIDOPHILUS CAP (BACID) PO SCH ×2 (08:57→17:33)
[2023-07-30] MEDS: amLODIPine 5 MG TAB PO SCH (08:58)
[2023-07-30] MEDS: FLUTICASONE PROP 0.05% NASAL SPRAY 16 GM (FLONASE) NARES SCH (08:58)
[2023-07-30] MEDS: ASPIRIN 81MG ENTERIC TABLET PO SCH (08:58)
[2023-07-30] MEDS: POLYVINYL ALCOHOL OPHTH SOLN 15ML (LIQUITEARS) OU SCH ×2 (08:58→21:25)
[2023-07-30] MEDS: HEPARIN SOD (PORCINE) 5000UNITS/ML 1ML VIAL/SYRINGE SC SCH ×2 (08:59→21:25)
[2023-07-30 14:00] VITALS: BP 116/58; TEMP 97.5; O2SAT 99
[2023-07-30] MEDS: cefTRIAXone SOD 1 GM in D5W MINI-BAG PLUS 50 ML IV SCH (17:33)
[2023-07-30 19:59] VITALS: BP 139/61; TEMP 98.1; O2SAT 97
[2023-07-30] MEDS: ATORVASTATIN 20 MG TAB PO SCH (21:25)
[2023-07-30] MEDS: LEVEMIR (INSULIN DETEMIR) 1 UNITS/0.01ML SC SCH (21:25)
[2023-07-31 06:33] VITALS: BP 154/92; TEMP 97.7; O2SAT 96
[2023-07-31] MEDS: INSULIN LISPRO (NovoLOG) PER UNIT SC SCH ×4 (07:30→20:31)
[2023-07-31 08:04] LABS: BASO # 0.1 10^3/uL (0.0-0.2); BASO % 1.1 % (0.0-1.0); EOS # 0.2 10^3/uL (0.0-0.5); EOS % 3.4 % (0.0-3.0); HEMATOCRIT 35.8 % (36.0-47.0); HEMOGLOBIN 11.6 g/dl (12.0-15.5); LYMPH # 1.3 10^3/uL (1.5-5.0); LYMPH % 27.5 % (24.0-44.0); MEAN CORPUSCULAR HEMOGLOBIN 29.8 pg (27.0-33.0); MEAN CORPUSCULAR HGB CONC 32.4 g/dl (32.0-36.5); MONO # 0.5 10^3/uL (0.0-0.8); MONO % 10.8 % (2.0-8.0); NEUTROPHILS # 2.7 10^3/uL (1.5-8.5); PLATELET COUNT, AUTOMATED 177 10^3/uL (150-450); RED BLOOD COUNT 3.89 10^6/uL (4.00-5.40); WHITE BLOOD COUNT 4.7 10^3/uL (4.0-10.0)
[2023-07-31] MEDS: LACTOBACILLUS ACIDOPHILUS CAP (BACID) PO SCH ×2 (08:23→17:52)
[2023-07-31] MEDS: amLODIPine 5 MG TAB PO SCH (08:23)
[2023-07-31] MEDS: HEPARIN SOD (PORCINE) 5000UNITS/ML 1ML VIAL/SYRINGE SC SCH ×2 (08:24→20:39)
[2023-07-31] MEDS: ASPIRIN 81MG ENTERIC TABLET PO SCH (08:24)
[2023-07-31] MEDS: ACETAMINOPHEN TAB 650MG DOSE (2X325MG) PO PRN (08:24)
[2023-07-31] MEDS: OMEPRAZOLE 20MG CAP PO SCH (08:24)
[2023-07-31] MEDS: POLYVINYL ALCOHOL OPHTH SOLN 15ML (LIQUITEARS) OU SCH ×2 (08:25→20:42)
[2023-07-31] MEDS: FLUTICASONE PROP 0.05% NASAL SPRAY 16 GM (FLONASE) NARES SCH (08:25)
[2023-07-31 08:26] LABS: CALCIUM LEVEL 9.3 MG/DL (8.3-10.6); CREATININE FOR GFR 1.19 MG/DL (0.55-1.30); GLOMERULAR FILTRATION RATE 47.1 (>39); MAGNESIUM LEVEL 1.3 MG/DL (1.8-2.4); POTASSIUM SERUM 4.7 MMOL/L (3.5-5.1)
[2023-07-31] MEDS: MAG SULF 1GM/100ML (MAG RUN) 1 GM in IV 1 EA IV SCH ×4 (14:36→17:52)
[2023-07-31 14:56] VITALS: BP 140/60; TEMP 97; O2SAT 97
[2023-07-31] MEDS: ATORVASTATIN 20 MG TAB PO SCH (20:38)
[2023-07-31] MEDS: LEVEMIR (INSULIN DETEMIR) 1 UNITS/0.01ML SC SCH (20:38)
[2023-07-31] MEDS: CEFDINIR 300 MG CAP (OMNICEF) PO SCH (20:38)
[2023-07-31 22:00] VITALS: BP 159/70; TEMP 97.7; O2SAT 98
[2023-08-01 06:00] VITALS: BP 150/73; TEMP 98.6; O2SAT 99
[2023-08-01] MEDS: INSULIN LISPRO (NovoLOG) PER UNIT SC SCH ×4 (07:30→19:58)
[2023-08-01 08:05] LABS: HEMATOCRIT 34.4 % (36.0-47.0); HEMOGLOBIN 11.2 g/dl (12.0-15.5); RED BLOOD COUNT 3.76 10^6/uL (4.00-5.40); WHITE BLOOD COUNT 5.3 10^3/uL (4.0-10.0)
[2023-08-01 08:06] LABS: BASO % 0.8 % (0.0-1.0); EOS # 0.2 10^3/uL (0.0-0.5); EOS % 3.2 % (0.0-3.0); LYMPH # 1.5 10^3/uL (1.5-5.0); LYMPH % 27.6 % (24.0-44.0); MEAN CORPUSCULAR HEMOGLOBIN 29.8 pg (27.0-33.0); MEAN CORPUSCULAR HGB CONC 32.6 g/dl (32.0-36.5); MEAN CORPUSCULAR VOLUME 91.5 fl (80.0-96.0); MONO # 0.5 10^3/uL (0.0-0.8); MONO % 10.3 % (2.0-8.0); NEUTROPHILS % 57.9 % (36.0-66.0); PLATELET COUNT, AUTOMATED 174 10^3/uL (150-450)
[2023-08-01 08:17] LABS: HEMOGLOBIN A1c 6.3 % (4.0-6.0)
[2023-08-01 08:29] LABS: CALCIUM LEVEL 8.9 MG/DL (8.3-10.6); CHOLESTEROL RISK RATIO 2.48 (<5); CREATININE FOR GFR 1.33 MG/DL (0.55-1.30); GLOMERULAR FILTRATION RATE 41.4 (>39); HDL CHOLESTEROL 62.8 MG/DL (>40); MAGNESIUM LEVEL 2.1 MG/DL (1.8-2.4); NON-HDL-C 93.2 MG/DL; POTASSIUM SERUM 5.4 MMOL/L (3.5-5.1)
[2023-08-01] MEDS: CEFDINIR 300 MG CAP (OMNICEF) PO SCH ×2 (09:45→20:07)
[2023-08-01] MEDS: LACTOBACILLUS ACIDOPHILUS CAP (BACID) PO SCH ×2 (09:45→16:51)
[2023-08-01] MEDS: HEPARIN SOD (PORCINE) 5000UNITS/ML 1ML VIAL/SYRINGE SC SCH ×2 (09:47→20:06)
[2023-08-01] MEDS: OMEPRAZOLE 20MG CAP PO SCH (09:47)
[2023-08-01] MEDS: amLODIPine 5 MG TAB PO SCH (09:47)
[2023-08-01] MEDS: ASPIRIN 81MG ENTERIC TABLET PO SCH (09:48)
[2023-08-01] MEDS: FLUTICASONE PROP 0.05% NASAL SPRAY 16 GM (FLONASE) NARES SCH (09:48)
[2023-08-01] MEDS: POLYVINYL ALCOHOL OPHTH SOLN 15ML (LIQUITEARS) OU SCH ×2 (09:49→20:07)
[2023-08-01] MEDS ORDERED: PATIROMER SORBITEX CALCIUM 8.4 GM POWDER PACKET (VELTASSA) PO ONE (12:00)
[2023-08-01 14:39] VITALS: BP 151/67; TEMP 97.3; O2SAT 97
[2023-08-01] MEDS: ATORVASTATIN 20 MG TAB PO SCH (20:07)
[2023-08-01] MEDS: LEVEMIR (INSULIN DETEMIR) 1 UNITS/0.01ML SC SCH (20:07)
[2023-08-01 22:00] VITALS: BP_SYST 148; BP_DIAS 64; BP_DIAS 65; TEMP 97.2; TEMP 97.3; O2SAT 99
[2023-08-02 06:00] VITALS: BP 146/65; TEMP 98.1; O2SAT 99
[2023-08-02 06:40] LABS: CREATININE FOR GFR 1.21 MG/DL (0.55-1.30); GLOMERULAR FILTRATION RATE 46.2 (>39); POTASSIUM SERUM 4.6 MMOL/L (3.5-5.1)
[2023-08-02] MEDS: amLODIPine 5 MG TAB PO SCH (08:10)
[2023-08-02] MEDS: CEFDINIR 300 MG CAP (OMNICEF) PO SCH ×2 (08:10→20:36)
[2023-08-02] MEDS: LACTOBACILLUS ACIDOPHILUS CAP (BACID) PO SCH ×2 (08:10→16:53)
[2023-08-02] MEDS: OMEPRAZOLE 20MG CAP PO SCH (08:10)
[2023-08-02] MEDS: ASPIRIN 81MG ENTERIC TABLET PO SCH (08:10)
[2023-08-02] MEDS: HEPARIN SOD (PORCINE) 5000UNITS/ML 1ML VIAL/SYRINGE SC SCH ×2 (08:11→20:36)
[2023-08-02] MEDS: INSULIN LISPRO (NovoLOG) PER UNIT SC SCH ×4 (08:11→20:06)
[2023-08-02] MEDS: FLUTICASONE PROP 0.05% NASAL SPRAY 16 GM (FLONASE) NARES SCH (08:11)
[2023-08-02] MEDS: POLYVINYL ALCOHOL OPHTH SOLN 15ML (LIQUITEARS) OU SCH ×2 (08:12→20:36)
[2023-08-02] MEDS: LEVEMIR (INSULIN DETEMIR) 1 UNITS/0.01ML SC SCH (20:36)
[2023-08-02] MEDS: ATORVASTATIN 20 MG TAB PO SCH (20:36)
[2023-08-02] MEDS: ACETAMINOPHEN TAB 650MG DOSE (2X325MG) PO PRN (23:28)
[2023-08-03 06:31] VITALS: BP 143/65; TEMP 98.4; O2SAT 98
[2023-08-03] MEDS: INSULIN LISPRO (NovoLOG) PER UNIT SC SCH ×4 (07:17→19:49)
[2023-08-03] MEDS: LACTOBACILLUS ACIDOPHILUS CAP (BACID) PO SCH ×2 (08:25→18:26)
[2023-08-03] MEDS: HEPARIN SOD (PORCINE) 5000UNITS/ML 1ML VIAL/SYRINGE SC SCH ×2 (08:25→20:03)
[2023-08-03] MEDS: ASPIRIN 81MG ENTERIC TABLET PO SCH (08:25)
[2023-08-03] MEDS: CEFDINIR 300 MG CAP (OMNICEF) PO SCH ×2 (08:25→20:02)
[2023-08-03] MEDS: POLYVINYL ALCOHOL OPHTH SOLN 15ML (LIQUITEARS) OU SCH ×2 (08:26→20:03)
[2023-08-03] MEDS: OMEPRAZOLE 20MG CAP PO SCH (08:26)
[2023-08-03] MEDS: FLUTICASONE PROP 0.05% NASAL SPRAY 16 GM (FLONASE) NARES SCH (08:26)
[2023-08-03] MEDS: ATORVASTATIN 20 MG TAB PO SCH (20:02)
[2023-08-03] MEDS: ACETAMINOPHEN TAB 650MG DOSE (2X325MG) PO PRN (20:02)
[2023-08-03] MEDS: LEVEMIR (INSULIN DETEMIR) 1 UNITS/0.01ML SC SCH (20:03)
[2023-08-04 06:00] VITALS: BP 149/76; TEMP 98.8; O2SAT 95
[2023-08-04] MEDS: ASPIRIN 81MG ENTERIC TABLET PO SCH (08:45)
[2023-08-04] MEDS: LACTOBACILLUS ACIDOPHILUS CAP (BACID) PO SCH ×2 (08:45→17:08)
[2023-08-04] MEDS: INSULIN LISPRO (NovoLOG) PER UNIT SC SCH ×4 (08:46→20:15)
[2023-08-04] MEDS: HEPARIN SOD (PORCINE) 5000UNITS/ML 1ML VIAL/SYRINGE SC SCH ×2 (08:46→20:15)
[2023-08-04] MEDS: ACETAMINOPHEN TAB 650MG DOSE (2X325MG) PO PRN ×2 (08:46→20:14)
[2023-08-04] MEDS: OMEPRAZOLE 20MG CAP PO SCH (08:47)
[2023-08-04] MEDS: POLYVINYL ALCOHOL OPHTH SOLN 15ML (LIQUITEARS) OU SCH ×2 (08:47→20:15)
[2023-08-04] MEDS: FLUTICASONE PROP 0.05% NASAL SPRAY 16 GM (FLONASE) NARES SCH (11:54)
[2023-08-04] MEDS: ATORVASTATIN 20 MG TAB PO SCH (20:13)
[2023-08-04] MEDS: LEVEMIR (INSULIN DETEMIR) 1 UNITS/0.01ML SC SCH (20:15)
[2023-08-05] MEDS: RAMELTEON 8 MG TAB (ROZEREM) PO PRN ×2 (01:37→20:55)
[2023-08-05 06:36] VITALS: BP 146/92; TEMP 98; O2SAT 99
[2023-08-05] MEDS: LACTOBACILLUS ACIDOPHILUS CAP (BACID) PO SCH ×2 (09:11→17:10)
[2023-08-05] MEDS: ASPIRIN 81MG ENTERIC TABLET PO SCH (09:11)
[2023-08-05] MEDS: OMEPRAZOLE 20MG CAP PO SCH (09:11)
[2023-08-05] MEDS: INSULIN LISPRO (NovoLOG) PER UNIT SC SCH ×4 (09:12→20:56)
[2023-08-05] MEDS: HEPARIN SOD (PORCINE) 5000UNITS/ML 1ML VIAL/SYRINGE SC SCH ×2 (09:12→20:55)
[2023-08-05] MEDS: FLUTICASONE PROP 0.05% NASAL SPRAY 16 GM (FLONASE) NARES SCH (09:13)
[2023-08-05] MEDS: POLYVINYL ALCOHOL OPHTH SOLN 15ML (LIQUITEARS) OU SCH ×2 (09:13→21:00)
[2023-08-05] MEDS: ACETAMINOPHEN TAB 650MG DOSE (2X325MG) PO PRN (09:13)
[2023-08-05] MEDS: LEVEMIR (INSULIN DETEMIR) 1 UNITS/0.01ML SC SCH (20:55)
[2023-08-05] MEDS: ATORVASTATIN 20 MG TAB PO SCH (20:55)
[2023-08-05 22:00] VITALS: BP 145/68; TEMP 97.8; O2SAT 99
[2023-08-06 06:00] VITALS: BP 128/58; TEMP 97.8; O2SAT 99
[2023-08-06] MEDS: LACTOBACILLUS ACIDOPHILUS CAP (BACID) PO SCH (08:00)
[2023-08-06] MEDS: OMEPRAZOLE 20MG CAP PO SCH (09:49)
[2023-08-06] MEDS: HEPARIN SOD (PORCINE) 5000UNITS/ML 1ML VIAL/SYRINGE SC SCH (09:49)
[2023-08-06] MEDS: ASPIRIN 81MG ENTERIC TABLET PO SCH (09:50)
[2023-08-06] MEDS: INSULIN LISPRO (NovoLOG) PER UNIT SC SCH ×2 (09:50→12:29)
[2023-08-06 09:51] VITALS: BP 119/58
[2023-08-06] MEDS: POLYVINYL ALCOHOL OPHTH SOLN 15ML (LIQUITEARS) OU SCH (09:52)
[2023-08-06] MEDS: FLUTICASONE PROP 0.05% NASAL SPRAY 16 GM (FLONASE) NARES SCH (09:52)
[2023-08-06] MEDS ORDERED: INSU100I48 SC (13:29)
[2023-08-06] MEDS ORDERED: RISATAB3 PO (13:29)
[2023-08-06] MEDS ORDERED: AMLO1TAB25 PO (13:29)
[2023-08-06] MEDS ORDERED: LISI5TAB11 PO (13:29)
== END 2023-08-06 16:07 | disposition home health service (06) | DRG 385 ==
LOC: M ED 18:22 → EDBD 18:22 → M ED INP 23:10 → ENRESERVTM 23:49 → ENRESERVDT 23:49 → M MS5PR 07-29 00:51 → M MS4PR 07-31 09:30
PROVIDERS: ADMIT Family Medicine; ATTEND Internal Medicine
DX: K51.00 Ulcerative (chronic) pancolitis without complications (principal); I63.9 Cerebral infarction, unspecified; N17.9 Acute kidney failure, unspecified; N39.0 Urinary tract infection, site not specified; E11.40 Type 2 diabetes mellitus with diabetic neuropathy, unspecified; N18.30 Chronic kidney disease, stage 3 unspecified; E11.22 Type 2 diabetes mellitus with diabetic chronic kidney disease; I12.9 Hypertensive chronic kidney disease with stage 1 through stage 4 chronic kidney disease, or unspecified chronic kidney disease; E87.5 Hyperkalemia; B96.20 Unspecified Escherichia coli [E. coli] as the cause of diseases classified elsewhere; K21.9 Gastro-esophageal reflux disease without esophagitis; E83.42 Hypomagnesemia; F03.90 Unspecified dementia, unspecified severity, without behavioral disturbance, psychotic disturbance, mood disturbance, and anxiety; Z79.82 Long term (current) use of aspirin; Z79.899 Other long term (current) drug therapy; Z79.4 Long term (current) use of insulin; E11.319 Type 2 diabetes mellitus with unspecified diabetic retinopathy without macular edema; M81.0 Age-related osteoporosis without current pathological fracture; Z87.891 Personal history of nicotine dependence; R13.10 Dysphagia, unspecified

== ENCOUNTER → 2023-09-06 | Outpatient (CLI) | payer OTHER, MEDICAID ==
[~2023-09-06] MED LIST changes: +ACET-907 PO; +AMLO1TAB24 PO; +AMLO1TAB25 PO; +ARTIDRO4 OU; +CALC600T86 PO; -CEFD300C41 PO; +CEFD300C42 PO; +EYEL1MED TOP; +FERR32TA PO; +FLON1SPR NARES; +GALA4TAB11 PO; +INSU100I48 SC; +LISI20TA33 PO; +LISI5TAB11 PO; +OCUVTAB4 PO; +RISATAB3 PO; +VITA100093 PO; +VITA500T40 PO
[2023-09-06 18:26] LABS: BASO # 0.1 10^3/uL (0.0-0.2); BASO % 0.9 % (0.0-1.0); EOS # 0.2 10^3/uL (0.0-0.5); EOS % 2.6 % (0.0-3.0); HEMATOCRIT 31.5 % (36.0-47.0); HEMOGLOBIN 10.3 g/dl (12.0-15.5); LYMPH # 1.8 10^3/uL (1.5-5.0); LYMPH % 31.2 % (24.0-44.0); MEAN CORPUSCULAR HGB CONC 32.7 g/dl (32.0-36.5); MEAN CORPUSCULAR VOLUME 94.9 fl (80.0-96.0); MONO # 0.6 10^3/uL (0.0-0.8); MONO % 10.2 % (2.0-8.0); NEUTROPHILS # 3.2 10^3/uL (1.5-8.5); NEUTROPHILS % 54.8 % (36.0-66.0); PLATELET COUNT, AUTOMATED 189 10^3/uL (150-450); RED BLOOD COUNT 3.32 10^6/uL (4.00-5.40); WHITE BLOOD COUNT 5.9 10^3/uL (4.0-10.0)
[2023-09-06 18:52] LABS: C REACTIVE PROTEIN QUANTITATIV < 0.40 MG/DL (<1.0)
[2023-09-06 18:54] LABS: ALBUMIN 3.5 G/DL (3.2-5.2); ALKALINE PHOSPHATASE 113 U/L (46-116); ALT/SGPT 36 U/L (7.0-40); AST/SGOT 19 U/L (<34); BILIRUBIN,TOTAL 0.9 MG/DL (0.3-1.2); BLOOD UREA NITROGEN 19 MG/DL (9-23); CALCIUM LEVEL 9.2 MG/DL (8.3-10.6); CARBON DIOXIDE LEVEL 28 MMOL/L (20-31); CHLORIDE LEVEL 105 MMOL/L (98-107); CREATININE FOR GFR 1.26 MG/DL (0.55-1.30); GLOMERULAR FILTRATION RATE 44.1 (>39); GLUCOSE, FASTING 242 MG/DL (74-106); MAGNESIUM LEVEL 1.5 MG/DL (1.8-2.4); POTASSIUM SERUM 4.6 MMOL/L (3.5-5.1); SODIUM LEVEL 140 MMOL/L (136-145); TOTAL PROTEIN 6.8 G/DL (5.7-8.2)
[2023-09-06 18:55] LABS: THYROID STIMULATING HORMONE 1.094 uIU/ML (0.55-4.78)
[2023-09-06 18:56] LABS: FREE T4 1.27 NG/DL (0.89-1.76)
[2023-09-06 18:57] LABS: VITAMIN B12 LEVEL > 2000 PG/ML (211-911)
[2023-09-06 19:06] LABS: HEMOGLOBIN A1c 8.1 % (4.0-6.0)
== END ==
LOC: M PLALAB 16:06
PROVIDERS: ATTEND Physician Assistant Medical
DX: E11.21 Type 2 diabetes mellitus with diabetic nephropathy (principal); R41.3 Other amnesia; D50.9 Iron deficiency anemia, unspecified; E83.40 Disorders of magnesium metabolism, unspecified; E78.2 Mixed hyperlipidemia; K51.00 Ulcerative (chronic) pancolitis without complications

== ENCOUNTER → 2023-09-28 | Outpatient (CLI) | payer OTHER, MEDICAID ==
[~2023-09-28] MED LIST changes: +BENZ-18; +CEFD1CAP9 PO; -CEFD300C42 PO; +FURO20TA2 PO; +INSU100I48 SQ; +IPRA0.00 INH; +LANTINJ4 SC; +LEVO-86 PO; +MED HIST COMMENT; +METO25TA PO; +NIRM1TAB6 PO; +PACE200T PO; +POTA-151 PO; +SPIR-10 PO; +TORS20TA2 PO; +XARE15TA PO; +ZYRTTAB8 PO
[2023-09-28 20:32] LABS: ALBUMIN 3.8 G/DL (3.2-5.2); BILIRUBIN,TOTAL 0.8 MG/DL (0.3-1.2); CALCIUM LEVEL 9.7 MG/DL (8.3-10.6); CREATININE FOR GFR 1.33 MG/DL (0.55-1.30); GLOMERULAR FILTRATION RATE 41.4 (>39); POTASSIUM SERUM 5.5 MMOL/L (3.5-5.1); TOTAL PROTEIN 7.1 G/DL (5.7-8.2)
== END ==
LOC: M PLALAB 15:12
PROVIDERS: ATTEND Physician Assistant Medical
DX: N18.32 Chronic kidney disease, stage 3b (principal)

== ENCOUNTER → 2023-12-06 | Outpatient (REF) | payer OTHER, MEDICAID | LOC: M SFHCPLAZ 15:48 | PROVIDERS: ATTEND Physician Assistant Medical | DX: R19.7 Diarrhea, unspecified (principal) ==

== ENCOUNTER → 2024-01-12 | Outpatient (CLI) | payer OTHER, MEDICAID ==
[~2024-01-12] MED LIST changes: -ASPI-161 PO; +ASPI-615 PO
== END ==
LOC: M RAD 13:35
PROVIDERS: ATTEND Nurse Practitioner Family
DX: N17.9 Acute kidney failure, unspecified (principal); N28.1 Cyst of kidney, acquired

== ENCOUNTER → 2024-02-03 | Outpatient (CLI) | payer OTHER, MEDICAID | LOC: M PLAIMG 14:02 | PROVIDERS: ATTEND Physician Assistant Medical | DX: M25.562 Pain in left knee (principal); M17.12 Unilateral primary osteoarthritis, left knee ==

== ENCOUNTER → 2024-02-18 | Outpatient (REF) | payer OTHER, MEDICAID, MEDICARE ==
[2024-02-18 12:47] LABS: HEMATOCRIT 32.2 % (36.0-47.0); MEAN CORPUSCULAR HEMOGLOBIN 28.7 pg (27.0-33.0); MEAN CORPUSCULAR HGB CONC 31.1 g/dl (32.0-36.5); MEAN CORPUSCULAR VOLUME 92.5 fl (80.0-96.0); PLATELET COUNT, AUTOMATED 194 10^3/uL (150-450); RED BLOOD COUNT 3.48 10^6/uL (4.00-5.40); WHITE BLOOD COUNT 5.7 10^3/uL (4.0-10.0)
[2024-02-18 13:05] LABS: HEMOGLOBIN A1c 9.3 % (4.0-6.0)
[2024-02-18 13:40] LABS: ALBUMIN 3.4 G/DL (3.2-5.2); BILIRUBIN,TOTAL 0.9 MG/DL (0.3-1.2); CALCIUM LEVEL 9.6 MG/DL (8.3-10.6); CHOLESTEROL RISK RATIO 3.2 (<5); CREATININE FOR GFR 1.75 MG/DL (0.55-1.30); GLOMERULAR FILTRATION RATE 30.1 (>39); HDL CHOLESTEROL 50.3 MG/DL (>40); LDL CHOLESTEROL 60.7 MG/DL (<100); MAGNESIUM LEVEL 1.5 MG/DL (1.8-2.4); NON-HDL-C 110.7 MG/DL; PHOSPHORUS LEVEL 4.5 MG/DL (2.4-5.1); POTASSIUM SERUM 4.6 MMOL/L (3.5-5.1); PTH INTACT 89.3 PG/ML (18.5-88.0); TOTAL 25(OH) VITAMIN D 28.6 NG/ML (20.0-100.0); TOTAL PROTEIN 6.7 G/DL (5.7-8.2)
== END ==
LOC: SKLAB6 07:44
PROVIDERS: ATTEND Internal Medicine
DX: I12.9 Hypertensive chronic kidney disease with stage 1 through stage 4 chronic kidney disease, or unspecified chronic kidney disease (principal); N18.9 Chronic kidney disease, unspecified; Z79.899 Other long term (current) drug therapy

== ENCOUNTER → 2024-02-23 | Outpatient (REF) | payer OTHER, MEDICAID, MEDICARE ==
[2024-02-23 18:23] LABS: CREATININE, URINE 53.6 MG/DL; MAU/CREAT RATIO 20.5 MCG/MG (0.0-30.0)
== END ==
LOC: SKLAB6 13:42
PROVIDERS: ATTEND Internal Medicine
DX: E11.9 Type 2 diabetes mellitus without complications (principal)

== ENCOUNTER → 2024-02-23 | Outpatient (REF) | payer OTHER, MEDICAID, MEDICARE ==
[2024-02-23 16:49] LABS: HEMATOCRIT 28.9 % (36.0-47.0); MEAN CORPUSCULAR HEMOGLOBIN 29.2 pg (27.0-33.0); MEAN CORPUSCULAR HGB CONC 31.1 g/dl (32.0-36.5); MEAN CORPUSCULAR VOLUME 93.8 fl (80.0-96.0); PLATELET COUNT, AUTOMATED 184 10^3/uL (150-450); RED BLOOD COUNT 3.08 10^6/uL (4.00-5.40); WHITE BLOOD COUNT 5.7 10^3/uL (4.0-10.0)
[2024-02-23 17:06] LABS: ALBUMIN 3.5 G/DL (3.2-5.2); CALCIUM LEVEL 8.9 MG/DL (8.3-10.6); CREATININE FOR GFR 1.74 MG/DL (0.55-1.30); GLOMERULAR FILTRATION RATE 30.3 (>39); MAGNESIUM LEVEL 1.5 MG/DL (1.8-2.4); PHOSPHORUS LEVEL 3.8 MG/DL (2.4-5.1); POTASSIUM SERUM 4.9 MMOL/L (3.5-5.1); PTH INTACT 209.5 PG/ML (18.5-88.0)
== END ==
LOC: SKLAB6 12:45
PROVIDERS: ATTEND Internal Medicine
DX: N18.9 Chronic kidney disease, unspecified (principal); D63.1 Anemia in chronic kidney disease

== ENCOUNTER → 2024-03-15 | Outpatient (REF) | payer OTHER, MEDICAID, MEDICARE ==
[2024-03-15 12:07] LABS: BASO # 0.1 10^3/uL (0.0-0.2); BASO % 0.9 % (0.0-1.0); EOS # 0.2 10^3/uL (0.0-0.5); EOS % 3.3 % (0.0-3.0); HEMATOCRIT 30.4 % (36.0-47.0); HEMOGLOBIN 9.8 g/dl (12.0-15.5); LYMPH # 1.6 10^3/uL (1.5-5.0); LYMPH % 24.7 % (24.0-44.0); MEAN CORPUSCULAR HEMOGLOBIN 29.4 pg (27.0-33.0); MEAN CORPUSCULAR HGB CONC 32.2 g/dl (32.0-36.5); MEAN CORPUSCULAR VOLUME 91.3 fl (80.0-96.0); MONO # 0.6 10^3/uL (0.0-0.8); MONO % 9.5 % (2.0-8.0); NEUTROPHILS % 61.3 % (36.0-66.0); PLATELET COUNT, AUTOMATED 224 10^3/uL (150-450); RED BLOOD COUNT 3.33 10^6/uL (4.00-5.40); WHITE BLOOD COUNT 6.5 10^3/uL (4.0-10.0)
[2024-03-15 12:32] LABS: ALBUMIN 3.3 G/DL (3.2-5.2); CALCIUM LEVEL 9.5 MG/DL (8.3-10.6); CREATININE FOR GFR 1.65 MG/DL (0.55-1.30); GLOMERULAR FILTRATION RATE 32.2 (>39); MAGNESIUM LEVEL 1.7 MG/DL (1.8-2.4); POTASSIUM SERUM 5.3 MMOL/L (3.5-5.1); PTH INTACT 75.5 PG/ML (18.5-88.0)
== END ==
LOC: SKLAB6 10:48
PROVIDERS: ATTEND Internal Medicine
DX: N18.9 Chronic kidney disease, unspecified (principal)

== ENCOUNTER → 2024-03-20 | Outpatient (REF) | payer OTHER, MEDICAID, MEDICARE ==
[2024-03-20 16:03] LABS: HEMATOCRIT 30.7 % (36.0-47.0); HEMOGLOBIN 9.7 g/dl (12.0-15.5); MEAN CORPUSCULAR HEMOGLOBIN 29.7 pg (27.0-33.0); MEAN CORPUSCULAR HGB CONC 31.6 g/dl (32.0-36.5); MEAN CORPUSCULAR VOLUME 93.9 fl (80.0-96.0); PLATELET COUNT, AUTOMATED 227 10^3/uL (150-450); RED BLOOD COUNT 3.27 10^6/uL (4.00-5.40); WHITE BLOOD COUNT 5.7 10^3/uL (4.0-10.0)
== END ==
LOC: SKLAB6 15:06
PROVIDERS: ATTEND Internal Medicine
DX: D64.9 Anemia, unspecified (principal)

== ENCOUNTER → 2024-04-12 | Outpatient (REF) | payer OTHER, MEDICAID ==
[~2024-04-12] MED LIST changes: +ONDA-282 PO; -ONDA4TAB6 PO
[2024-04-12 11:14] LABS: BASO # 0.1 10^3/uL (0.0-0.2); EOS # 0.2 10^3/uL (0.0-0.5); EOS % 2.8 % (0.0-3.0); HEMATOCRIT 32.1 % (36.0-47.0); HEMOGLOBIN 10.3 g/dl (12.0-15.5); LYMPH # 1.4 10^3/uL (1.5-5.0); LYMPH % 23.8 % (24.0-44.0); MEAN CORPUSCULAR HEMOGLOBIN 29.8 pg (27.0-33.0); MEAN CORPUSCULAR HGB CONC 32.1 g/dl (32.0-36.5); MEAN CORPUSCULAR VOLUME 92.8 fl (80.0-96.0); MONO # 0.7 10^3/uL (0.0-0.8); MONO % 11.4 % (2.0-8.0); NEUTROPHILS # 3.7 10^3/uL (1.5-8.5); NEUTROPHILS % 60.8 % (36.0-66.0); PLATELET COUNT, AUTOMATED 203 10^3/uL (150-450); RED BLOOD COUNT 3.46 10^6/uL (4.00-5.40); WHITE BLOOD COUNT 6.1 10^3/uL (4.0-10.0)
[2024-04-12 11:44] LABS: ALBUMIN 3.6 G/DL (3.2-5.2); CALCIUM LEVEL 9.7 MG/DL (8.3-10.6); CREATININE FOR GFR 1.67 MG/DL (0.55-1.30); GLOMERULAR FILTRATION RATE 31.8 (>39); MAGNESIUM LEVEL 1.6 MG/DL (1.8-2.4); PHOSPHORUS LEVEL 4.3 MG/DL (2.4-5.1); POTASSIUM SERUM 4.8 MMOL/L (3.5-5.1)
[2024-04-12 12:02] LABS: PTH INTACT 78.9 PG/ML (18.5-88.0)
== END ==
LOC: SKLAB6 08:24
PROVIDERS: ATTEND Internal Medicine
DX: N18.31 Chronic kidney disease, stage 3a (principal); Z79.899 Other long term (current) drug therapy

== ENCOUNTER → 2024-04-13 | Outpatient (REF) | payer OTHER, MEDICAID ==
[2024-04-13 14:18] LABS: ALBUMIN 3.6 G/DL (3.2-5.2); BILIRUBIN,TOTAL 0.8 MG/DL (0.3-1.2); CALCIUM LEVEL 9.8 MG/DL (8.3-10.6); POTASSIUM SERUM 4.7 MMOL/L (3.5-5.1); TOTAL PROTEIN 6.8 G/DL (5.7-8.2)
[2024-04-14 12:24] LABS: CREATININE FOR GFR 1.96 MG/DL (0.55-1.30); GLOMERULAR FILTRATION RATE 26.4 (>39)
== END ==
LOC: SKLAB6 07:00
PROVIDERS: ATTEND Internal Medicine
DX: N18.9 Chronic kidney disease, unspecified (principal)

== ENCOUNTER → 2024-05-11 | Outpatient (REF) | payer OTHER, MEDICAID ==
[2024-05-11 09:50] LABS: HEMATOCRIT 29.8 % (36.0-47.0); HEMOGLOBIN 9.5 g/dl (12.0-15.5); MEAN CORPUSCULAR HEMOGLOBIN 29.3 pg (27.0-33.0); MEAN CORPUSCULAR HGB CONC 31.9 g/dl (32.0-36.5); PLATELET COUNT, AUTOMATED 181 10^3/uL (150-450); RED BLOOD COUNT 3.24 10^6/uL (4.00-5.40); WHITE BLOOD COUNT 5.2 10^3/uL (4.0-10.0)
[2024-05-11 10:18] LABS: ALBUMIN 3.4 G/DL (3.2-5.2); ALKALINE PHOSPHATASE 69 U/L (46-116); ALT/SGPT 19 U/L (7.0-40); AST/SGOT < 8 U/L (<34); BILIRUBIN,TOTAL 0.7 MG/DL (0.3-1.2); BLOOD UREA NITROGEN 41 MG/DL (9-23); CALCIUM LEVEL 9.5 MG/DL (8.3-10.6); CARBON DIOXIDE LEVEL 27 MMOL/L (20-31); CHLORIDE LEVEL 103 MMOL/L (98-107); CREATININE FOR GFR 1.59 MG/DL (0.55-1.30); GLOMERULAR FILTRATION RATE 33.6 (>39); GLUCOSE, FASTING 118 MG/DL (74-106); POTASSIUM SERUM 4.4 MMOL/L (3.5-5.1); SODIUM LEVEL 138 MMOL/L (136-145); TOTAL PROTEIN 6.4 G/DL (5.7-8.2)
== END ==
LOC: SKLAB6 07:38
PROVIDERS: ATTEND Internal Medicine
DX: N18.9 Chronic kidney disease, unspecified (principal)

== ENCOUNTER → 2024-05-17 | Outpatient (REF) ==
[2024-05-17 19:09] LABS: APPEARANCE, URINE HAZY (CLEAR); BACTERIA, URINE AUTO 1+ (NEGATIVE); BILIRUBIN, URINE AUTO NEGATIVE (NEGATIVE); BLOOD, URINE BLOOD NEGATIVE (NEGATIVE); COLOR, URINE YELLOW (YELLOW); GLUCOSE, URINE (UA) AUTO NEGATIVE (NEGATIVE); KETONE, URINE AUTO NEGATIVE (NEGATIVE); LEUKOCYTE ESTERASE, URINE AUTO 1+ (NEGATIVE); NITRITE, URINE AUTO NEGATIVE (NEGATIVE); PROTEIN, URINE AUTO NEGATIVE (NEGATIVE); RBC, URINE AUTO 0 /HPF (0-3); SPECIFIC GRAVITY URINE AUTO 1.008 (1.002-1.035); SQUAMOUS EPITHELIAL CELL UR AU 4 /HPF (0-6); UROBILINOGEN, URINE AUTO 0.2 mg/dL (0.0-2.0); WBC, URINE AUTO 3 /HPF (0-3)
== END ==
LOC: SKLAB6 16:49
PROVIDERS: ATTEND Internal Medicine
DX: R30.0 Dysuria (principal)

== ENCOUNTER → 2024-05-23 | Outpatient (REF) | payer OTHER, MEDICAID ==
[2024-05-23 08:45] LABS: BASO % 0.5 % (0.0-1.0); EOS # 0.2 10^3/uL (0.0-0.5); EOS % 4.2 % (0.0-3.0); HEMATOCRIT 27.4 % (36.0-47.0); HEMOGLOBIN 8.8 g/dl (12.0-15.5); LYMPH # 1.8 10^3/uL (1.5-5.0); LYMPH % 33.2 % (24.0-44.0); MEAN CORPUSCULAR HEMOGLOBIN 29.9 pg (27.0-33.0); MEAN CORPUSCULAR HGB CONC 32.1 g/dl (32.0-36.5); MEAN CORPUSCULAR VOLUME 93.2 fl (80.0-96.0); MONO # 0.7 10^3/uL (0.0-0.8); MONO % 11.8 % (2.0-8.0); NEUTROPHILS # 2.8 10^3/uL (1.5-8.5); NEUTROPHILS % 49.9 % (36.0-66.0); PLATELET COUNT, AUTOMATED 175 10^3/uL (150-450); RED BLOOD COUNT 2.94 10^6/uL (4.00-5.40); WHITE BLOOD COUNT 5.5 10^3/uL (4.0-10.0)
[2024-05-23 09:11] LABS: CALCIUM LEVEL 9.4 MG/DL (8.3-10.6); CREATININE FOR GFR 2.19 MG/DL (0.55-1.30); GLOMERULAR FILTRATION RATE 23.2 (>39); POTASSIUM SERUM 4.6 MMOL/L (3.5-5.1)
== END ==
LOC: SKLAB6 06:50
PROVIDERS: ATTEND Internal Medicine
DX: N39.0 Urinary tract infection, site not specified (principal)

== ENCOUNTER → 2024-06-02 | Outpatient (REF) | payer OTHER, MEDICAID ==
[2024-06-02 09:37] LABS: BASO % 0.5 % (0.0-1.0); EOS # 0.2 10^3/uL (0.0-0.5); EOS % 3.9 % (0.0-3.0); HEMATOCRIT 32.2 % (36.0-47.0); HEMOGLOBIN 10.2 g/dl (12.0-15.5); LYMPH # 1.8 10^3/uL (1.5-5.0); LYMPH % 30.1 % (24.0-44.0); MEAN CORPUSCULAR HEMOGLOBIN 29.6 pg (27.0-33.0); MEAN CORPUSCULAR HGB CONC 31.7 g/dl (32.0-36.5); MEAN CORPUSCULAR VOLUME 93.3 fl (80.0-96.0); MONO # 0.7 10^3/uL (0.0-0.8); NEUTROPHILS # 3.1 10^3/uL (1.5-8.5); NEUTROPHILS % 53.3 % (36.0-66.0); PLATELET COUNT, AUTOMATED 215 10^3/uL (150-450); RED BLOOD COUNT 3.45 10^6/uL (4.00-5.40); WHITE BLOOD COUNT 5.9 10^3/uL (4.0-10.0)
[2024-06-02 10:01] LABS: ALBUMIN 3.8 G/DL (3.2-5.2); CALCIUM LEVEL 9.9 MG/DL (8.3-10.6); CREATININE FOR GFR 1.54 MG/DL (0.55-1.30); GLOMERULAR FILTRATION RATE 34.9 (>39); POTASSIUM SERUM 4.5 MMOL/L (3.5-5.1); TOTAL PROTEIN 7.2 G/DL (5.7-8.2)
[2024-06-02 10:02] LABS: THYROID STIMULATING HORMONE 1.576 uIU/ML (0.55-4.78)
== END ==
LOC: SKLAB6 08:27
PROVIDERS: ATTEND Internal Medicine
DX: R41.82 Altered mental status, unspecified (principal)

== ENCOUNTER → 2024-06-15 | Outpatient (REF) | payer OTHER, MEDICAID ==
[2024-06-15 12:28] LABS: ALBUMIN 3.9 G/DL (3.2-5.2); BILIRUBIN,TOTAL 0.9 MG/DL (0.3-1.2); CALCIUM LEVEL 10.1 MG/DL (8.3-10.6); CREATININE FOR GFR 1.89 MG/DL (0.55-1.30); GLOMERULAR FILTRATION RATE 27.5 (>39); POTASSIUM SERUM 4.5 MMOL/L (3.5-5.1); TOTAL PROTEIN 7.5 G/DL (5.7-8.2)
== END ==
LOC: SKLAB6 07:00
PROVIDERS: ATTEND Internal Medicine
DX: N39.0 Urinary tract infection, site not specified (principal)

== ENCOUNTER → 2024-06-15 | Outpatient (REF) | payer OTHER, MEDICAID ==
[2024-06-15 12:04] LABS: BASO # 0.1 10^3/uL (0.0-0.2); BASO % 1.1 % (0.0-1.0); EOS # 0.2 10^3/uL (0.0-0.5); EOS % 3.5 % (0.0-3.0); HEMATOCRIT 33.6 % (36.0-47.0); HEMOGLOBIN 10.7 g/dl (12.0-15.5); LYMPH # 1.9 10^3/uL (1.5-5.0); LYMPH % 29.7 % (24.0-44.0); MEAN CORPUSCULAR HEMOGLOBIN 29.9 pg (27.0-33.0); MEAN CORPUSCULAR HGB CONC 31.8 g/dl (32.0-36.5); MEAN CORPUSCULAR VOLUME 93.9 fl (80.0-96.0); MONO # 0.5 10^3/uL (0.0-0.8); MONO % 8.4 % (2.0-8.0); NEUTROPHILS # 3.6 10^3/uL (1.5-8.5); PLATELET COUNT, AUTOMATED 229 10^3/uL (150-450); RED BLOOD COUNT 3.58 10^6/uL (4.00-5.40); WHITE BLOOD COUNT 6.3 10^3/uL (4.0-10.0)
[2024-06-15 12:19] LABS: HEMOGLOBIN A1c 6.6 % (4.0-6.0)
[2024-06-15 12:42] LABS: APPEARANCE, URINE CLEAR (CLEAR); BACTERIA, URINE AUTO NEGATIVE (NEGATIVE); BILIRUBIN, URINE AUTO NEGATIVE (NEGATIVE); BLOOD, URINE BLOOD NEGATIVE (NEGATIVE); COLOR, URINE STRAW (YELLOW); GLUCOSE, URINE (UA) AUTO NEGATIVE (NEGATIVE); KETONE, URINE AUTO NEGATIVE (NEGATIVE); LEUKOCYTE ESTERASE, URINE AUTO NEGATIVE (NEGATIVE); NITRITE, URINE AUTO NEGATIVE (NEGATIVE); PROTEIN, URINE AUTO NEGATIVE (NEGATIVE); RBC, URINE AUTO 0 /HPF (0-3); SPECIFIC GRAVITY URINE AUTO 1.006 (1.002-1.035); SQUAMOUS EPITHELIAL CELL UR AU 1 /HPF (0-6); UROBILINOGEN, URINE AUTO 0.2 mg/dL (0.0-2.0); WBC, URINE AUTO 1 /HPF (0-3)
== END ==
LOC: SKLAB6 10:44
PROVIDERS: ATTEND Internal Medicine
DX: R41.82 Altered mental status, unspecified (principal); E11.9 Type 2 diabetes mellitus without complications

== ENCOUNTER → 2024-06-19 | Outpatient (REF) | payer OTHER, MEDICAID ==
[2024-06-19 07:24] LABS: CALCIUM LEVEL 9.2 MG/DL (8.3-10.6); CREATININE FOR GFR 1.63 MG/DL (0.55-1.30); GLOMERULAR FILTRATION RATE 32.7 (>39); MAGNESIUM LEVEL 1.9 MG/DL (1.8-2.4); POTASSIUM SERUM 4.6 MMOL/L (3.5-5.1)
[2024-06-19 09:53] LABS: APPEARANCE, URINE HAZY (CLEAR); BACTERIA, URINE AUTO 1+ (NEGATIVE); BILIRUBIN, URINE AUTO NEGATIVE (NEGATIVE); BLOOD, URINE BLOOD 1+ (NEGATIVE); COLOR, URINE YELLOW (YELLOW); GLUCOSE, URINE (UA) AUTO NEGATIVE (NEGATIVE); KETONE, URINE AUTO NEGATIVE (NEGATIVE); LEUKOCYTE ESTERASE, URINE AUTO 1+ (NEGATIVE); NITRITE, URINE AUTO NEGATIVE (NEGATIVE); PROTEIN, URINE AUTO NEGATIVE (NEGATIVE); RBC, URINE AUTO 1 /HPF (0-3); SQUAMOUS EPITHELIAL CELL UR AU 2 /HPF (0-6); UROBILINOGEN, URINE AUTO 0.2 mg/dL (0.0-2.0); WBC, URINE AUTO 1 /HPF (0-3)
== END ==
LOC: SKLAB6 07:00
PROVIDERS: ATTEND Internal Medicine
DX: N18.9 Chronic kidney disease, unspecified (principal); Z79.899 Other long term (current) drug therapy

== ENCOUNTER → 2024-07-13 | Outpatient (REF) | payer OTHER, MEDICAID ==
[2024-07-13 11:01] LABS: HEMATOCRIT 30.7 % (36.0-47.0); HEMOGLOBIN 9.9 g/dl (12.0-15.5); MEAN CORPUSCULAR HEMOGLOBIN 29.8 pg (27.0-33.0); MEAN CORPUSCULAR HGB CONC 32.2 g/dl (32.0-36.5); MEAN CORPUSCULAR VOLUME 92.5 fl (80.0-96.0); PLATELET COUNT, AUTOMATED 209 10^3/uL (150-450); RED BLOOD COUNT 3.32 10^6/uL (4.00-5.40); WHITE BLOOD COUNT 5.3 10^3/uL (4.0-10.0)
[2024-07-13 11:21] LABS: ALBUMIN 3.5 G/DL (3.2-5.2); BILIRUBIN,TOTAL 0.9 MG/DL (0.3-1.2); CALCIUM LEVEL 9.6 MG/DL (8.3-10.6); CREATININE FOR GFR 1.56 MG/DL (0.55-1.30); GLOMERULAR FILTRATION RATE 34.4 (>39); POTASSIUM SERUM 5.3 MMOL/L (3.5-5.1); TOTAL PROTEIN 6.9 G/DL (5.7-8.2)
== END ==
LOC: SKLAB6 07:12
PROVIDERS: ATTEND Internal Medicine
DX: N18.9 Chronic kidney disease, unspecified (principal)

== ENCOUNTER → 2024-08-21 | Outpatient (CLI) | payer OTHER ==
[~2024-08-21] MED LIST changes: +GLIP10TA15 PO; -GLIP10TA6 PO
[2024-08-21 11:31] LABS: HEMOGLOBIN A1c 7.7 % (4.0-6.0)
[2024-08-21 11:33] LABS: CREATININE, URINE 67.6 MG/DL; MAU/CREAT RATIO 8.8 MCG/MG (0.0-30.0)
[2024-08-21 11:35] LABS: THYROID STIMULATING HORMONE 1.62 uIU/ML (0.55-4.78)
[2024-08-21 11:37] LABS: ALBUMIN 3.5 G/DL (3.2-5.2); BILIRUBIN,TOTAL 0.7 MG/DL (0.3-1.2); CALCIUM LEVEL 10.5 MG/DL (8.3-10.6); CHOLESTEROL RISK RATIO 2.77 (<5); CREATININE FOR GFR 1.6 MG/DL (0.55-1.30); GLOMERULAR FILTRATION RATE 33.4 (>39); LDL CHOLESTEROL 76.4 MG/DL (<100); TOTAL PROTEIN 7.3 G/DL (5.7-8.2)
== END ==
LOC: M LAB 10:06
PROVIDERS: ATTEND Pediatrics
DX: E11.65 Type 2 diabetes mellitus with hyperglycemia (principal); E78.5 Hyperlipidemia, unspecified

== ENCOUNTER → 2024-09-12 | Outpatient (CLI) | payer OTHER ==
[~2024-09-12] MED LIST changes: +ATOR-398 PO; -LIPI80TA PO
== END ==
LOC: M RAD 16:09
PROVIDERS: ATTEND Pediatrics
DX: M54.50 Low back pain, unspecified (principal)

== ENCOUNTER → 2024-11-14 | Outpatient (CLI) | payer OTHER, MEDICAID | LOC: M WHC 14:30 | PROVIDERS: ATTEND Physician Assistant Medical | DX: Z12.31 Encounter for screening mammogram for malignant neoplasm of breast (principal) ==

== ENCOUNTER 2025-01-18 20:41 | Inpatient (IN) | payer MEDICARE, MEDICAID ==
[~2025-01-18] VITALS: Ht 152.4 cm; Wt 75.0 kg
[2025-01-18 21:20] LABS: BASO # 0.1 10^3/uL (0.0-0.2); BASO % 0.6 % (0.0-1.0); EOS # 0.1 10^3/uL (0.0-0.5); EOS % 0.7 % (0.0-3.0); HEMATOCRIT 32.9 % (36.0-47.0); HEMOGLOBIN 10.4 g/dl (12.0-15.5); LYMPH # 2.3 10^3/uL (1.5-5.0); MEAN CORPUSCULAR HEMOGLOBIN 28.7 pg (27.0-33.0); MEAN CORPUSCULAR HGB CONC 31.6 g/dl (32.0-36.5); MEAN CORPUSCULAR VOLUME 90.6 fl (80.0-96.0); MONO # 0.9 10^3/uL (0.0-0.8); MONO % 7.7 % (2.0-8.0); NEUTROPHILS # 8.8 10^3/uL (1.5-8.5); NEUTROPHILS % 71.7 % (36.0-66.0); PLATELET COUNT, AUTOMATED 277 10^3/uL (150-450); RED BLOOD COUNT 3.63 10^6/uL (4.00-5.40); WHITE BLOOD COUNT 12.2 10^3/uL (4.0-10.0)
[2025-01-18 21:50] LABS: CK-MB VALUE MASS < 1.0 NG/ML (<3.6)
[2025-01-18] MEDS: HALOPERIDOL LACTATE 5MG/ML VIAL IV ONE (21:50)
[2025-01-18 21:53] LABS: THYROID STIMULATING HORMONE 1.379 uIU/ML (0.55-4.78)
[2025-01-18 21:58] LABS: ALBUMIN 3.9 G/DL (3.2-5.2); ALKALINE PHOSPHATASE 74 U/L (35-104); ALT/SGPT 24 U/L (7.0-40); AST/SGOT 19 U/L (<34); BILIRUBIN,DIRECT 0.2 MG/DL (<0.4); BILIRUBIN,TOTAL 0.7 MG/DL (0.3-1.2); BLOOD UREA NITROGEN 28 MG/DL (9-23); CALCIUM LEVEL 9.9 MG/DL (8.3-10.6); CARBON DIOXIDE LEVEL 25 MMOL/L (20-31); CHLORIDE LEVEL 100 MMOL/L (98-107); CREATININE FOR GFR 2.02 MG/DL (0.55-1.30); GLOMERULAR FILTRATION RATE 25.4 (>39); GLUCOSE, FASTING 212 MG/DL (74-106); POTASSIUM SERUM 4.6 MMOL/L (3.5-5.1); SODIUM LEVEL 142 MMOL/L (136-145); TOTAL PROTEIN 7.8 G/DL (5.7-8.2)
[2025-01-18 22:05] LABS: CPK CREATINE PHOSPHOKINASE 139 U/L (34-145); MB/CK RELATIVE INDEX 0.71 (< OR =4)
[2025-01-18] MEDS: NS (Normal Saline) 0.9% 1,000 ML IV ONE (22:49)
[2025-01-18 23:03] LABS: MAGNESIUM LEVEL 1.4 MG/DL (1.8-2.4)
[2025-01-18 23:58] LABS: CK-MB VALUE MASS 1.7 NG/ML (<3.6)
[2025-01-18 23:59] LABS: MB/CK RELATIVE INDEX 0.86 (< OR =4)
[2025-01-19] MEDS: cefTRIAXone SOD 1 GM in DEXTROSE 5% (D5W) ADV/MINI-BAG 50 ML IV ONE (02:37)
[2025-01-19 02:39] LABS: KETONE, URINE AUTO RFX NEGATIVE (NEGATIVE); LEUKOCYTE ESTERASE UR AUTO RFX 3+ (NEGATIVE); NITRITE, URINE AUTO RFX NEGATIVE (NEGATIVE); RBC, URINE AUTO RFX 27 /HPF (0-3); SQUAM EPITHELIAL CELL UR AURFX 18 /HPF (0-6); TRANSITIONAL EPITHELIAL AU RFX <1 /HPF; WBC, URINE AUTO RFX 131 /HPF (0-3)
[2025-01-19] MEDS: AZITHROMYCIN INJ 500 MG, VIAL MATE ADAPTER 1 EACH in NS 250 ML IV ONE (03:04)
[2025-01-19] MEDS: ENOXAPARIN 80MG/0.8ML SYRINGE (J1650 PER 10MG) SC ONE (04:05)
[2025-01-19] MEDS: MAG SULF 1GM/100ML (MAG RUN) 1 GM in IV 1 EA IV ONE (04:05)
[2025-01-19] MEDS ORDERED: GLUCAGON INJ 1MG VIAL SC PRN (05:15)
[2025-01-19] MEDS ORDERED: DEXTROSE 50% 50ML SYRINGE IV PRN (05:15)
[2025-01-19] MEDS ORDERED: MOM 30ML SUSPENSION UDC PO PRN (05:15)
[2025-01-19] MEDS ORDERED: MAALOX 30 ML SUSP *UDC PO PRN (05:15)
[2025-01-19] MEDS ORDERED: GLUCOSE 4 GM CHEW PO PRN (05:15)
[2025-01-19 08:53] LABS: HEMATOCRIT 29.8 % (36.0-47.0); HEMOGLOBIN 9.2 g/dl (12.0-15.5); MEAN CORPUSCULAR HEMOGLOBIN 28.4 pg (27.0-33.0); MEAN CORPUSCULAR HGB CONC 30.9 g/dl (32.0-36.5); PLATELET COUNT, AUTOMATED 216 10^3/uL (150-450); RED BLOOD COUNT 3.24 10^6/uL (4.00-5.40); WHITE BLOOD COUNT 10.2 10^3/uL (4.0-10.0)
[2025-01-19] MEDS: DOCUSATE SODIUM 100MG CAPSULE PO SCH (09:00)
[2025-01-19] MEDS: ATORVASTATIN 20 MG TAB PO SCH (09:00)
[2025-01-19] MEDS: ASPIRIN ENTERIC 325MG TAB PO SCH (09:00)
[2025-01-19] MEDS: MEMANTINE 5MG TABLET (NAMENDA) PO SCH (09:00)
[2025-01-19] MEDS: MAGNESIUM OXIDE 400MG TAB (MAG-OX) PO SCH (09:00)
[2025-01-19] MEDS: INSULIN LISPRO (NovoLOG) PER UNIT SC SCH ×2 (09:12→20:48)
[2025-01-19] MEDS: ACETAMINOPHEN 325 MG TAB PO PRN (09:14)
[2025-01-19 09:20] LABS: ALBUMIN 3.2 G/DL (3.2-5.2); BILIRUBIN,TOTAL 0.6 MG/DL (0.3-1.2); CALCIUM LEVEL 8.8 MG/DL (8.3-10.6); CREATININE FOR GFR 1.67 MG/DL (0.55-1.30); GLOMERULAR FILTRATION RATE 31.7 (>39); POTASSIUM SERUM 4.3 MMOL/L (3.5-5.1); TOTAL PROTEIN 6.6 G/DL (5.7-8.2)
[2025-01-19 10:47] LABS: CK-MB VALUE MASS 1.4 NG/ML (<3.6)
[2025-01-19 10:48] LABS: MB/CK RELATIVE INDEX 0.92 (< OR =4)
[2025-01-19] MEDS ORDERED: HALOPERIDOL LACTATE 5MG/ML VIAL IV PRN (13:25)
[2025-01-19] MEDS ORDERED: HYDR1CAP25 PO (13:32)
[2025-01-19] MEDS ORDERED: FURO40TA2 PO (13:32)
[2025-01-19] MEDS ORDERED: MEMA1TAB3 PO (13:32)
[2025-01-19] MEDS ORDERED: [UNRECOGNIZED DRUG - CODE] IM (13:32)
[2025-01-19] MEDS ORDERED: LISI2.5T9 PO (13:32)
[2025-01-19] MEDS ORDERED: BAYE1TAB2 PO (13:32)
[2025-01-19] MEDS ORDERED: FAMO20TA PO (13:32)
[2025-01-19] MEDS ORDERED: CALC1CAP31 PO (13:32)
[2025-01-19] MEDS ORDERED: PROC1INJ5 IM (13:32)
[2025-01-19] MEDS ORDERED: HOME MED LIST COMPLETE! XX SCH (13:35)
[2025-01-19] MEDS ORDERED: ALBUTEROL SULFATE 2.5MG/0.5ML INH NEB SOLN NEB PRN (13:40)
[2025-01-19] MEDS ORDERED: CALCIUM CARBONATE 500 MG CHEW U/D PO PRN (13:50)
[2025-01-19] MEDS: FUROSEMIDE 40 MG TAB PO SCH (14:00)
[2025-01-19] MEDS ORDERED: PILL CUTTER 1 EACH XX PRN (14:15)
[2025-01-19 14:23] LABS: CK-MB VALUE MASS 1.1 NG/ML (<3.6); MB/CK RELATIVE INDEX 0.71 (< OR =4)
[2025-01-19 18:02] VITALS: BP 127/63; TEMP 98.2; O2SAT 100
[2025-01-19 19:47] VITALS: BP 145/66; TEMP 98.2; O2SAT 98
[2025-01-19] MEDS: GABAPENTIN 100 MG CAP PO SCH (20:47)
[2025-01-19] MEDS: LanTUS (INSULIN GLARGINE INJ) 1 UNITS/0.01 ML SC SCH (20:47)
[2025-01-19] MEDS: DOXYCYCLINE HYCLATE 100MG TABLET PO SCH (20:47)
[2025-01-19] MEDS: QUEtiapine FUMARATE 12.5 MG HALF-TAB PO SCH (20:47)
[2025-01-20] MEDS: cefTRIAXone SOD 2 GM in DEXTROSE 5% (D5W) ADV/MINI-BAG 50 ML IV SCH (01:48)
[2025-01-20] MEDS ORDERED: AZITHROMYCIN INJ 500 MG, VIAL MATE ADAPTER 1 EACH in D5W 250 ML IV SCH (03:00)
[2025-01-20 03:31] VITALS: BP 146/67; TEMP 98.4; O2SAT 100
[2025-01-20] MEDS ORDERED: ENOXAPARIN 80MG/0.8ML SYRINGE (J1650 PER 10MG) SC SCH (06:00)
[2025-01-20] MEDS: ENOXAPARIN 30MG/0.3ML SYRINGE (J1650 PER 10MG) SC SCH (06:25)
[2025-01-20] MEDS ORDERED: LISINOPRIL *2.5 MG* TAB PO SCH (09:00)
[2025-01-20 09:19] LABS: HEMATOCRIT 29.6 % (36.0-47.0); MEAN CORPUSCULAR HEMOGLOBIN 28.7 pg (27.0-33.0); MEAN CORPUSCULAR HGB CONC 30.4 g/dl (32.0-36.5); MEAN CORPUSCULAR VOLUME 94.3 fl (80.0-96.0); PLATELET COUNT, AUTOMATED 218 10^3/uL (150-450); RED BLOOD COUNT 3.14 10^6/uL (4.00-5.40); WHITE BLOOD COUNT 6.9 10^3/uL (4.0-10.0)
[2025-01-20 09:43] LABS: CPK CREATINE PHOSPHOKINASE 161 U/L (34-145)
[2025-01-20 09:49] LABS: ALBUMIN 3.1 G/DL (3.2-5.2); ALKALINE PHOSPHATASE 55 U/L (35-104); ALT/SGPT 17 U/L (7.0-40); AST/SGOT 17 U/L (<34); BILIRUBIN,TOTAL 0.5 MG/DL (0.3-1.2); BLOOD UREA NITROGEN 23 MG/DL (9-23); CALCIUM LEVEL 10.1 MG/DL (8.3-10.6); CARBON DIOXIDE LEVEL 28 MMOL/L (20-31); CHLORIDE LEVEL 108 MMOL/L (98-107); CK-MB VALUE MASS < 1.0 NG/ML (<3.6); CREATININE FOR GFR 1.42 MG/DL (0.55-1.30); GLOMERULAR FILTRATION RATE 38.2 (>39); GLUCOSE, FASTING 78 MG/DL (74-106); MAGNESIUM LEVEL 1.9 MG/DL (1.8-2.4); MB/CK RELATIVE INDEX 0.62 (< OR =4); SODIUM LEVEL 146 MMOL/L (136-145); TOTAL PROTEIN 6.6 G/DL (5.7-8.2)
[2025-01-20] MEDS: FAMOTIDINE 20 MG TAB PO SCH (10:27)
[2025-01-20 11:56] VITALS: BP 136/57; TEMP 98.1; O2SAT 99
[2025-01-20] MEDS: FLUTICASONE PROP 0.05% NASAL SPRAY 16 GM (FLONASE) NARES SCH (13:21)
[2025-01-20] MEDS: traMADol 50 MG TAB PO PRN (13:33)
[2025-01-20 19:50] VITALS: BP 132/57; TEMP 98.2; O2SAT 99
[2025-01-21 03:41] VITALS: BP 137/58; TEMP 97.5; O2SAT 95
[2025-01-21 06:21] LABS: HEMATOCRIT 28.5 % (36.0-47.0); HEMOGLOBIN 8.8 g/dl (12.0-15.5); MEAN CORPUSCULAR HEMOGLOBIN 28.8 pg (27.0-33.0); MEAN CORPUSCULAR HGB CONC 30.9 g/dl (32.0-36.5); MEAN CORPUSCULAR VOLUME 93.1 fl (80.0-96.0); PLATELET COUNT, AUTOMATED 214 10^3/uL (150-450); RED BLOOD COUNT 3.06 10^6/uL (4.00-5.40); WHITE BLOOD COUNT 5.8 10^3/uL (4.0-10.0)
[2025-01-21 06:52] LABS: BILIRUBIN,TOTAL 0.5 MG/DL (0.3-1.2); CALCIUM LEVEL 9.1 MG/DL (8.3-10.6); CREATININE FOR GFR 1.46 MG/DL (0.55-1.30); POTASSIUM SERUM 3.7 MMOL/L (3.5-5.1); TOTAL PROTEIN 6.4 G/DL (5.7-8.2)
[2025-01-21] MEDS: CEFDINIR 300 MG CAP (OMNICEF) PO SCH (08:49)
[2025-01-21 12:00] VITALS: BP 142/65; TEMP 98.4; O2SAT 98
[2025-01-21 19:56] VITALS: BP 142/58; TEMP 97.5; O2SAT 100
[2025-01-22 04:16] VITALS: BP 145/47; TEMP 97; O2SAT 97
[2025-01-22 08:41] LABS: HEMATOCRIT 30.1 % (36.0-47.0); HEMOGLOBIN 9.2 g/dl (12.0-15.5); MEAN CORPUSCULAR HEMOGLOBIN 28.3 pg (27.0-33.0); MEAN CORPUSCULAR HGB CONC 30.6 g/dl (32.0-36.5); MEAN CORPUSCULAR VOLUME 92.6 fl (80.0-96.0); PLATELET COUNT, AUTOMATED 230 10^3/uL (150-450); RED BLOOD COUNT 3.25 10^6/uL (4.00-5.40)
[2025-01-22 09:00] VITALS: BP 157/70
[2025-01-22] MEDS: LanTUS (INSULIN GLARGINE INJ) 1 UNITS/0.01 ML SC SCH (09:00)
[2025-01-22 09:07] LABS: ALBUMIN 3.2 G/DL (3.2-5.2); BILIRUBIN,TOTAL 0.5 MG/DL (0.3-1.2); CALCIUM LEVEL 9.6 MG/DL (8.3-10.6); CREATININE FOR GFR 1.31 MG/DL (0.55-1.30); GLOMERULAR FILTRATION RATE 41.9 (>39); TOTAL PROTEIN 6.7 G/DL (5.7-8.2)
[2025-01-22] MEDS ORDERED: CEFD300CAP PO (15:19)
== END 2025-01-22 18:46 | disposition home or self-care (01) | DRG 193 ==
LOC: M ED 20:41 → EDBD 20:41 → M ED INP 01-19 05:15 → M MSPAV 01-19 17:54
PROVIDERS: ADMIT Student in an Organized Health Care Education/Training Program; ATTEND Internal Medicine
DX: J18.9 Pneumonia, unspecified organism (principal); G93.41 Metabolic encephalopathy; N39.0 Urinary tract infection, site not specified; E87.0 Hyperosmolality and hypernatremia; I24.89 Other forms of acute ischemic heart disease; I12.9 Hypertensive chronic kidney disease with stage 1 through stage 4 chronic kidney disease, or unspecified chronic kidney disease; F03.90 Unspecified dementia, unspecified severity, without behavioral disturbance, psychotic disturbance, mood disturbance, and anxiety; N18.32 Chronic kidney disease, stage 3b; E11.40 Type 2 diabetes mellitus with diabetic neuropathy, unspecified; E11.22 Type 2 diabetes mellitus with diabetic chronic kidney disease; M17.0 Bilateral primary osteoarthritis of knee; M81.0 Age-related osteoporosis without current pathological fracture; K21.9 Gastro-esophageal reflux disease without esophagitis; F41.9 Anxiety disorder, unspecified; R13.11 Dysphagia, oral phase; B96.1 Klebsiella pneumoniae [K. pneumoniae] as the cause of diseases classified elsewhere; D50.9 Iron deficiency anemia, unspecified; Z98.41 Cataract extraction status, right eye; Z98.42 Cataract extraction status, left eye; Z87.891 Personal history of nicotine dependence; E11.319 Type 2 diabetes mellitus with unspecified diabetic retinopathy without macular edema; Z79.899 Other long term (current) drug therapy; Z79.82 Long term (current) use of aspirin; Z79.4 Long term (current) use of insulin

== ENCOUNTER → 2025-02-07 | Outpatient (CLI) | payer MEDICARE, MEDICAID ==
[~2025-02-07] MED LIST changes: +BAYE1TAB2 PO; +CALC1CAP31 PO; +CEFD300CAP PO; +FAMO20TA PO; +FURO40TA2 PO; +HYDR1CAP25 PO; +LISI2.5T9 PO; +MEMA1TAB3 PO; +PROC1INJ5 IM; +[UNRECOGNIZED DRUG - CODE] IM
[2025-02-07 18:38] LABS: APPEARANCE, URINE TURBID (CLEAR); BACTERIA, URINE AUTO 2+ (NEGATIVE); BILIRUBIN, URINE AUTO NEGATIVE (NEGATIVE); BLOOD, URINE BLOOD 1+ (NEGATIVE); COLOR, URINE YELLOW (YELLOW); GLUCOSE, URINE (UA) AUTO 3+ mg/dL (NEGATIVE); KETONE, URINE AUTO NEGATIVE (NEGATIVE); LEUKOCYTE ESTERASE, URINE AUTO 3+ (NEGATIVE); NITRITE, URINE AUTO NEGATIVE (NEGATIVE); PROTEIN, URINE AUTO 2+ mg/dL (NEGATIVE); RBC, URINE AUTO 0 /HPF (0-3); SPECIFIC GRAVITY URINE AUTO 1.009 (1.002-1.035); SQUAMOUS EPITHELIAL CELL UR AU 0 /HPF (0-6); UROBILINOGEN, URINE AUTO 0.2 mg/dL (0.0-2.0); WBC, URINE AUTO TNTC /HPF (0-3)
[2025-02-07 18:39] LABS: BASO # 0.1 10^3/uL (0.0-0.2); BASO % 0.9 % (0.0-1.0); EOS # 0.4 10^3/uL (0.0-0.5); EOS % 3.6 % (0.0-3.0); HEMATOCRIT 32.6 % (36.0-47.0); HEMOGLOBIN 10.2 g/dl (12.0-15.5); LYMPH % 29.5 % (24.0-44.0); MEAN CORPUSCULAR HEMOGLOBIN 28.9 pg (27.0-33.0); MEAN CORPUSCULAR HGB CONC 31.3 g/dl (32.0-36.5); MEAN CORPUSCULAR VOLUME 92.4 fl (80.0-96.0); MONO % 9.7 % (2.0-8.0); NEUTROPHILS # 5.7 10^3/uL (1.5-8.5); NEUTROPHILS % 56.1 % (36.0-66.0); PLATELET COUNT, AUTOMATED 212 10^3/uL (150-450); RED BLOOD COUNT 3.53 10^6/uL (4.00-5.40); WHITE BLOOD COUNT 10.1 10^3/uL (4.0-10.0)
[2025-02-07 19:01] LABS: ALBUMIN 3.6 G/DL (3.2-5.2); BILIRUBIN,TOTAL 1.1 MG/DL (0.3-1.2); CALCIUM LEVEL 10.1 MG/DL (8.3-10.6); CREATININE FOR GFR 1.93 MG/DL (0.55-1.30); GLOMERULAR FILTRATION RATE 26.4 (>39); MAGNESIUM LEVEL 1.8 MG/DL (1.8-2.4); POTASSIUM SERUM 4.1 MMOL/L (3.5-5.1); TOTAL PROTEIN 7.3 G/DL (5.7-8.2)
[2025-02-07 19:03] LABS: FERRITIN 539.8 NG/ML (7.3-270.7)
== END ==
LOC: M PLALAB 16:11
PROVIDERS: ATTEND Physician Assistant Medical
DX: R79.89 Other specified abnormal findings of blood chemistry (principal); N39.0 Urinary tract infection, site not specified; I24.89 Other forms of acute ischemic heart disease; M79.604 Pain in right leg; E11.21 Type 2 diabetes mellitus with diabetic nephropathy; I10 Essential (primary) hypertension; E83.42 Hypomagnesemia; E87.0 Hyperosmolality and hypernatremia; D50.9 Iron deficiency anemia, unspecified; Z09 Encounter for follow-up examination after completed treatment for conditions other than malignant neoplasm

== ENCOUNTER → 2025-02-12 | Outpatient (CLI) | payer MEDICARE, MEDICAID ==
[2025-02-12 17:34] LABS: CALCIUM LEVEL 8.9 MG/DL (8.3-10.6); CREATININE FOR GFR 1.73 MG/DL (0.55-1.30); GLOMERULAR FILTRATION RATE 30.1 (>39); POTASSIUM SERUM 4.3 MMOL/L (3.5-5.1)
== END ==
LOC: M PLALAB 15:09
PROVIDERS: ATTEND Physician Assistant Medical
DX: N17.9 Acute kidney failure, unspecified (principal)

== ENCOUNTER 2025-02-18 18:37 | Inpatient (IN) | payer MEDICARE, MEDICAID ==
[~2025-02-18] VITALS: Ht 147.3 cm; Wt 75.1 kg
[2025-02-18] MEDS: NS (Normal Saline) 0.9% 1,000 ML IV ONE ×2 (19:33→20:45)
[2025-02-18] MEDS: PANTOPRAZOLE 40MG VIAL IV ONE (19:34)
[2025-02-18] MEDS: ONDANSETRON 4MG 2ML VIAL IV ONE (19:34)
[2025-02-18] MEDS: PIPERACILLIN/TAZOBACTAM SOD 4.5 GM in DEXTROSE 5% (D5W) ADV/MINI-BAG 50 ML IV ONE (19:34)
[2025-02-18 20:08] LABS: BASO # 0.1 10^3/uL (0.0-0.2); BASO % 0.6 % (0.0-1.0); EOS # 0.6 10^3/uL (0.0-0.5); EOS % 5.5 % (0.0-3.0); HEMATOCRIT 30.9 % (36.0-47.0); HEMOGLOBIN 9.4 g/dl (12.0-15.5); LYMPH # 2.1 10^3/uL (1.5-5.0); MEAN CORPUSCULAR HEMOGLOBIN 28.3 pg (27.0-33.0); MEAN CORPUSCULAR HGB CONC 30.4 g/dl (32.0-36.5); MEAN CORPUSCULAR VOLUME 93.1 fl (80.0-96.0); MONO # 0.9 10^3/uL (0.0-0.8); MONO % 7.8 % (2.0-8.0); NEUTROPHILS # 7.3 10^3/uL (1.5-8.5); NEUTROPHILS % 66.6 % (36.0-66.0); PLATELET COUNT, AUTOMATED 149 10^3/uL (150-450); RED BLOOD COUNT 3.32 10^6/uL (4.00-5.40)
[2025-02-18 20:27] LABS: CK-MB VALUE MASS < 1.0 NG/ML (<3.6); LIPASE 22 U/L (12-53)
[2025-02-18 20:28] LABS: AMYLASE 60 U/L (30-118)
[2025-02-18 20:29] LABS: ALBUMIN 3.3 G/DL (3.2-5.2); ALKALINE PHOSPHATASE 90 U/L (35-104); ALT/SGPT 28 U/L (7.0-40); AST/SGOT 21 U/L (<34); BILIRUBIN,DIRECT 0.3 MG/DL (<0.4); BILIRUBIN,TOTAL 0.9 MG/DL (0.3-1.2); BLOOD UREA NITROGEN 19 MG/DL (9-23); CALCIUM LEVEL 8.8 MG/DL (8.3-10.6); CARBON DIOXIDE LEVEL 24 MMOL/L (20-31); CHLORIDE LEVEL 94 MMOL/L (98-107); CPK CREATINE PHOSPHOKINASE 63 U/L (34-145); CREATININE FOR GFR 2.08 MG/DL (0.55-1.30); GLOMERULAR FILTRATION RATE 24.1 (>39); GLUCOSE, FASTING 374 MG/DL (74-106); MAGNESIUM LEVEL 1.7 MG/DL (1.8-2.4); MB/CK RELATIVE INDEX 1.58 (< OR =4); SODIUM LEVEL 134 MMOL/L (136-145); TOTAL PROTEIN 6.9 G/DL (5.7-8.2)
[2025-02-18 21:34] LABS: KETONE, URINE AUTO RFX NEGATIVE (NEGATIVE); LEUKOCYTE ESTERASE UR AUTO RFX NEGATIVE (NEGATIVE); MUCUS, URINE RFX SMALL (NEGATIVE); NITRITE, URINE AUTO RFX NEGATIVE (NEGATIVE); RBC, URINE AUTO RFX 1 /HPF (0-3); SQUAM EPITHELIAL CELL UR AURFX 10 /HPF (0-6); WBC, URINE AUTO RFX 1 /HPF (0-3)
[2025-02-18 22:35] LABS: CK-MB VALUE MASS 1.4 NG/ML (<3.6)
[2025-02-18 22:37] LABS: MB/CK RELATIVE INDEX 2.5 (< OR =4)
[2025-02-18] MEDS ORDERED: MED REC IN PROGRESS XX SCH (23:00)
[2025-02-18] MEDS: MAG SULF 1GM/100ML (MAG RUN) 1 GM in IV 1 EA IV ONE (23:14)
[2025-02-19] MEDS ORDERED: LISI5TAB11 PO (00:57)
[2025-02-19] MEDS ORDERED: [UNRECOGNIZED DRUG - CODE] PO (00:57)
[2025-02-19] MEDS ORDERED: ACET-683 PO (00:57)
[2025-02-19] MEDS ORDERED: BAYE325T13 PO (00:57)
[2025-02-19] MEDS ORDERED: HOME MED LIST COMPLETE! XX SCH (01:00)
[2025-02-19 01:05] LABS: CK-MB VALUE MASS 1.8 NG/ML (<3.6)
[2025-02-19 01:06] LABS: MB/CK RELATIVE INDEX 3.1 (< OR =4)
[2025-02-19] MEDS ORDERED: MAALOX 30 ML SUSP *UDC PO PRN (02:15)
[2025-02-19] MEDS ORDERED: HEPARIN SOD (PORCINE) 5000UNITS/ML 1ML VIAL/SYRINGE IV PRN (02:15)
[2025-02-19] MEDS ORDERED: MOM 30ML SUSPENSION UDC PO PRN (02:15)
[2025-02-19] MEDS ORDERED: NITROGLYCERIN 0.4MG SUBL TABLET SL PRN (02:15)
[2025-02-19] MEDS ORDERED: PILL CUTTER 1 EACH XX PRN (02:50)
[2025-02-19] MEDS: ASPIRIN 81MG CHEW TABLET PO ONE (02:56)
[2025-02-19] MEDS: GABAPENTIN 100 MG CAP PO SCH (02:56)
[2025-02-19] MEDS: AZITHROMYCIN 250MG TABLET PO SCH (02:56)
[2025-02-19] MEDS: FAMOTIDINE 20 MG TAB PO ONE (02:57)
[2025-02-19] MEDS: CLOPIDOGREL 300 MG TAB (PLAVIX) PO ONE (02:57)
[2025-02-19] MEDS: cefTRIAXone SOD 1 GM in DEXTROSE 5% (D5W) ADV/MINI-BAG 50 ML IV SCH (02:57)
[2025-02-19] MEDS: HEPARIN SOD (PORCINE) 5000UNITS/ML 1ML VIAL/SYRINGE IV ONE (02:58)
[2025-02-19] MEDS ORDERED: NITR100C2 PO (03:50)
[2025-02-19 05:50] LABS: HEMATOCRIT 23.6 % (36.0-47.0); HEMOGLOBIN 7.5 g/dl (12.0-15.5); MEAN CORPUSCULAR HEMOGLOBIN 29.2 pg (27.0-33.0); MEAN CORPUSCULAR HGB CONC 31.8 g/dl (32.0-36.5); MEAN CORPUSCULAR VOLUME 91.8 fl (80.0-96.0); PLATELET COUNT, AUTOMATED 103 10^3/uL (150-450); RED BLOOD COUNT 2.57 10^6/uL (4.00-5.40); WHITE BLOOD COUNT 7.7 10^3/uL (4.0-10.0)
[2025-02-19] MEDS ORDERED: HEPARIN DRIP 25,000 UNITS in IV 1 EA IV SCH (06:00)
[2025-02-19] MEDS: HEPARIN DRIP 25,000 UNITS in IV 1 EA IV SCH (06:10)
[2025-02-19] MEDS: LEVALBUTEROL 1.25 MG 0.5ML CONCENTRATE NEB INH SCH (07:18)
[2025-02-19 07:32] LABS: PROCALCITONIN 0.26 ng/ml
[2025-02-19 07:34] LABS: ALBUMIN 2.7 G/DL (3.2-5.2); BILIRUBIN,TOTAL 0.7 MG/DL (0.3-1.2); CHOLESTEROL RISK RATIO 2.96 (<5); CREATININE FOR GFR 1.83 MG/DL (0.55-1.30); GLOMERULAR FILTRATION RATE 28.1 (>39); HDL CHOLESTEROL 42.5 MG/DL (>40); LDL CHOLESTEROL 57.7 MG/DL (<100); NON-HDL-C 83.5 MG/DL; POTASSIUM SERUM 3.7 MMOL/L (3.5-5.1); TOTAL PROTEIN 5.7 G/DL (5.7-8.2)
[2025-02-19] MEDS: NS (Normal Saline) 0.9% 1,000 ML IV SCH (07:37)
[2025-02-19] MEDS ORDERED: ASPIRIN 325 MG TAB PO SCH (09:00)
[2025-02-19] MEDS: FUROSEMIDE 20 MG TAB PO SCH (09:55)
[2025-02-19] MEDS: DOCUSATE SODIUM 100MG CAPSULE PO SCH (09:55)
[2025-02-19] MEDS: VITAMIN D 1,000 INTERNATIONAL UNITS TABLET PO SCH (09:56)
[2025-02-19] MEDS: DOXYCYCLINE HYCLATE 100MG TABLET PO SCH (09:56)
[2025-02-19] MEDS: ATORVASTATIN 20 MG TAB PO SCH (09:56)
[2025-02-19] MEDS: LISINOPRIL *2.5 MG* TAB PO SCH (09:56)
[2025-02-19] MEDS: ENOXAPARIN 60MG/0.6ML SYRINGE (J1650 PER 10MG) SC SCH (09:57)
[2025-02-19 10:00] VITALS: BP 99/59; TEMP 97.5; O2SAT 95
[2025-02-19] MEDS: MEMANTINE 5MG TABLET (NAMENDA) PO SCH (10:01)
[2025-02-19] MEDS: METOPROLOL TART 12.5 MG PER 1/2 TAB PO SCH (10:07)
[2025-02-19] MEDS: PANTOPRAZOLE 40MG VIAL IV SCH (10:08)
[2025-02-19] MEDS: NYSTATIN 500,000U/5ML SUSP UDC SS SCH (12:07)
[2025-02-19 12:28] VITALS: BP 94/54
[2025-02-19 12:36] LABS: CK-MB VALUE MASS 2.8 NG/ML (<3.6)
[2025-02-19 12:40] LABS: MB/CK RELATIVE INDEX 1.23 (< OR =4)
[2025-02-19] MEDS ORDERED: GLUCAGON INJ 1MG VIAL SC PRN (13:15)
[2025-02-19] MEDS ORDERED: DEXTROSE 50% 50ML SYRINGE IV PRN (13:15)
[2025-02-19] MEDS ORDERED: GLUCOSE 4 GM CHEW PO PRN (13:15)
[2025-02-19] MEDS ORDERED: LEVALBUTEROL 1.25 MG 0.5ML CONCENTRATE NEB NEB PRN (13:25)
[2025-02-19 13:44] VITALS: TEMP 97; O2SAT 99
[2025-02-19 15:58] VITALS: BP 101/47; TEMP 97; O2SAT 95
[2025-02-19] MEDS: INSULIN LISPRO (NovoLOG) PER UNIT SC SCH ×2 (17:20→20:13)
[2025-02-19] MEDS: LanTUS (INSULIN GLARGINE INJ) 1 UNITS/0.01 ML SC SCH (20:19)
[2025-02-19] MEDS: MAGNESIUM OXIDE 400MG TAB (MAG-OX) PO SCH (20:19)
[2025-02-19 20:45] VITALS: BP 117/57; TEMP 97.7; O2SAT 96
[2025-02-19 23:53] VITALS: BP 127/57; TEMP 97.2; O2SAT 92
[2025-02-20] VITALS (9 sets, daily range): BP systolic 105–129; BP diastolic 43–62; TEMP 97–97.8; O2SAT 85–98
[2025-02-20] MEDS ORDERED: ASPIRIN 325 MG TAB PO SCH (06:00)
[2025-02-20 06:47] LABS: HEMATOCRIT 23.2 % (36.0-47.0); HEMOGLOBIN 7.1 g/dl (12.0-15.5); MEAN CORPUSCULAR HGB CONC 30.6 g/dl (32.0-36.5); MEAN CORPUSCULAR VOLUME 91.3 fl (80.0-96.0); PLATELET COUNT, AUTOMATED 116 10^3/uL (150-450); RED BLOOD COUNT 2.54 10^6/uL (4.00-5.40); WHITE BLOOD COUNT 6.3 10^3/uL (4.0-10.0)
[2025-02-20 07:22] LABS: ALBUMIN 2.6 G/DL (3.2-5.2); BILIRUBIN,TOTAL 0.4 MG/DL (0.3-1.2); CREATININE FOR GFR 1.8 MG/DL (0.55-1.30); GLOMERULAR FILTRATION RATE 28.7 (>39); MB/CK RELATIVE INDEX 0.67 (< OR =4); TOTAL PROTEIN 5.5 G/DL (5.7-8.2)
[2025-02-20] MEDS ORDERED: ASPIRIN 81MG ENTERIC TABLET PO SCH (09:00)
[2025-02-20] MEDS ORDERED: DOXYCYCLINE HYCLATE 100 MG in DEXTROSE 5% (D5W) MINI-BAG PLU 100 ML IV SCH (09:00)
[2025-02-20] MEDS: ASPIRIN ENTERIC 325MG TAB PO SCH (09:00)
[2025-02-20] MEDS: DOXYCYCLINE HYCLATE 100 MG in DEXTROSE 5% (D5W) MINI-BAG PLU 100 ML IV SCH (14:01)
[2025-02-20] MEDS: ACETAMINOPHEN 325 MG TAB PO PRN (20:53)
[2025-02-21] VITALS (14 sets, daily range): BP systolic 112–162; BP diastolic 53–72; TEMP 97.7–98.8; O2SAT 85–99
[2025-02-21 06:37] LABS: HEMATOCRIT 22.3 % (36.0-47.0); MEAN CORPUSCULAR HEMOGLOBIN 28.1 pg (27.0-33.0); MEAN CORPUSCULAR HGB CONC 30.5 g/dl (32.0-36.5); MEAN CORPUSCULAR VOLUME 92.1 fl (80.0-96.0); PLATELET COUNT, AUTOMATED 136 10^3/uL (150-450); RED BLOOD COUNT 2.42 10^6/uL (4.00-5.40); WHITE BLOOD COUNT 7.9 10^3/uL (4.0-10.0)
[2025-02-21 06:42] LABS: HEMOGLOBIN 6.8 g/dl (12.0-15.5)
[2025-02-21 06:47] LABS: CK-MB VALUE MASS < 1.0 NG/ML (<3.6)
[2025-02-21 06:48] LABS: ALBUMIN 2.5 G/DL (3.2-5.2); BILIRUBIN,TOTAL 0.4 MG/DL (0.3-1.2); CALCIUM LEVEL 8.1 MG/DL (8.3-10.6); CPK CREATINE PHOSPHOKINASE 171 U/L (34-145); CREATININE FOR GFR 1.52 MG/DL (0.55-1.30); GLOMERULAR FILTRATION RATE 35.1 (>39); MB/CK RELATIVE INDEX 0.58 (< OR =4); POTASSIUM SERUM 3.8 MMOL/L (3.5-5.1); TOTAL PROTEIN 5.4 G/DL (5.7-8.2)
[2025-02-21 09:16] LABS: C REACTIVE PROTEIN QUANTITATIV 2.12 MG/DL (<1.0)
[2025-02-21 09:28] LABS: PROCALCITONIN 0.15 ng/ml
[2025-02-21] MEDS: FUROSEMIDE 40MG/4ML VIAL IV SCH ×2 (13:20→20:42)
[2025-02-21 15:58] LABS: CK-MB VALUE MASS < 1.0 NG/ML (<3.6)
[2025-02-21 16:01] LABS: CPK CREATINE PHOSPHOKINASE 179 U/L (34-145); MB/CK RELATIVE INDEX 0.55 (< OR =4)
[2025-02-21 20:42] LABS: HEMATOCRIT 35.2 % (36.0-47.0); HEMOGLOBIN 11.7 g/dl (12.0-15.5)
[2025-02-21] MEDS: DOXYCYCLINE HYCLATE 100MG TABLET PO SCH (20:43)
[2025-02-22 03:33] VITALS: BP 142/68; TEMP 98.9; O2SAT 90
[2025-02-22 06:03] LABS: HEMATOCRIT 32.4 % (36.0-47.0); HEMOGLOBIN 10.7 g/dl (12.0-15.5); MEAN CORPUSCULAR HEMOGLOBIN 28.5 pg (27.0-33.0); MEAN CORPUSCULAR VOLUME 86.2 fl (80.0-96.0); PLATELET COUNT, AUTOMATED 134 10^3/uL (150-450); RED BLOOD COUNT 3.76 10^6/uL (4.00-5.40); WHITE BLOOD COUNT 9.2 10^3/uL (4.0-10.0)
[2025-02-22 06:44] LABS: CK-MB VALUE MASS < 1.0 NG/ML (<3.6)
[2025-02-22 06:45] LABS: CPK CREATINE PHOSPHOKINASE 118 U/L (34-145); MB/CK RELATIVE INDEX 0.84 (< OR =4)
[2025-02-22 06:49] LABS: ALBUMIN 2.8 G/DL (3.2-5.2); BILIRUBIN,TOTAL 2.8 MG/DL (0.3-1.2); CALCIUM LEVEL 8.4 MG/DL (8.3-10.6); CREATININE FOR GFR 1.26 MG/DL (0.55-1.30); POTASSIUM SERUM 3.9 MMOL/L (3.5-5.1); TOTAL PROTEIN 6.2 G/DL (5.7-8.2)
[2025-02-22 07:13] VITALS: BP 158/70; TEMP 98.8; O2SAT 94
[2025-02-22] MEDS: FUROSEMIDE 40MG/4ML VIAL IV SCH (08:53)
[2025-02-22 12:00] VITALS: TEMP 99.2; O2SAT 95
[2025-02-22 15:30] VITALS: BP 110/58; TEMP 99; O2SAT 95
[2025-02-22] MEDS: SUCRALFATE SUSP 1GM/10ML UD PO SCH (17:47)
[2025-02-22 19:36] VITALS: BP 146/64; TEMP 98.8; O2SAT 100
[2025-02-22] MEDS: PANTOPRAZOLE 40MG VIAL IV SCH (21:27)
[2025-02-22] MEDS: LanTUS (INSULIN GLARGINE INJ) 1 UNITS/0.01 ML SC SCH (21:27)
[2025-02-22] MEDS: METOPROLOL TART 25 MG TABLET PO SCH (21:28)
[2025-02-22 23:58] VITALS: BP 147/56; TEMP 97.5; O2SAT 99
[2025-02-23 03:19] VITALS: BP 130/56; TEMP 97.9; O2SAT 92
[2025-02-23 06:14] LABS: HEMATOCRIT 33.7 % (36.0-47.0); HEMOGLOBIN 11.2 g/dl (12.0-15.5); MEAN CORPUSCULAR HEMOGLOBIN 28.9 pg (27.0-33.0); MEAN CORPUSCULAR HGB CONC 33.2 g/dl (32.0-36.5); MEAN CORPUSCULAR VOLUME 86.9 fl (80.0-96.0); PLATELET COUNT, AUTOMATED 162 10^3/uL (150-450); RED BLOOD COUNT 3.88 10^6/uL (4.00-5.40); WHITE BLOOD COUNT 8.6 10^3/uL (4.0-10.0)
[2025-02-23 06:58] LABS: ALBUMIN 2.7 G/DL (3.2-5.2); BILIRUBIN,TOTAL 1.3 MG/DL (0.3-1.2); CALCIUM LEVEL 8.5 MG/DL (8.3-10.6); CREATININE FOR GFR 1.31 MG/DL (0.55-1.30); POTASSIUM SERUM 3.6 MMOL/L (3.5-5.1); TOTAL PROTEIN 6.4 G/DL (5.7-8.2)
[2025-02-23 07:13] LABS: CK-MB VALUE MASS < 1.0 NG/ML (<3.6)
[2025-02-23 07:14] LABS: CPK CREATINE PHOSPHOKINASE 77 U/L (34-145); MB/CK RELATIVE INDEX 1.29 (< OR =4)
[2025-02-23 07:39] VITALS: BP 135/59; TEMP 98.4; O2SAT 95
[2025-02-23 09:15] VITALS: BP 135/59
[2025-02-23 10:00] VITALS: O2SAT 86
[2025-02-23 10:10] VITALS: O2SAT 94
[2025-02-23] MEDS: POTASSIUM CHLORIDE 10% LIQ 20MEQ/15ML UDC PO ONE (10:32)
[2025-02-23 12:02] VITALS: BP 146/65; TEMP 97.7; O2SAT 93
[2025-02-23] MEDS ORDERED: DOXY100T PO (13:02)
[2025-02-23] MEDS ORDERED: SUCR1ORA PO (13:02)
[2025-02-23] MEDS ORDERED: PROT1TAB2 PO (13:02)
[2025-02-23] MEDS ORDERED: CEFD1CAP9 PO (13:02)
[2025-02-23] MEDS ORDERED: FURO40TA2 PO (13:02)
[2025-02-23] MEDS ORDERED: METO1TAB87 PO (13:02)
[2025-02-23] MEDS ORDERED: FERR325T3 PO (13:04)
[2025-02-23] MEDS ORDERED: ASPI81CH33 PO (15:24)
[2025-02-23] MEDS ORDERED: POTA10CA70 PO (15:32)
== END 2025-02-23 19:05 | disposition home health service (06) | DRG 871 ==
LOC: M ED 18:37 → M ED INP 02-19 02:13 → M PCU 02-19 08:30
PROVIDERS: ADMIT Student in an Organized Health Care Education/Training Program; ATTEND Internal Medicine
DX: A41.9 Sepsis, unspecified organism (principal); J69.0 Pneumonitis due to inhalation of food and vomit; J96.01 Acute respiratory failure with hypoxia; I50.33 Acute on chronic diastolic (congestive) heart failure; B37.0 Candidal stomatitis; I24.89 Other forms of acute ischemic heart disease; I13.0 Hypertensive heart and chronic kidney disease with heart failure and stage 1 through stage 4 chronic kidney disease, or unspecified chronic kidney disease; N18.32 Chronic kidney disease, stage 3b; E11.40 Type 2 diabetes mellitus with diabetic neuropathy, unspecified; E11.22 Type 2 diabetes mellitus with diabetic chronic kidney disease; M81.0 Age-related osteoporosis without current pathological fracture; K21.9 Gastro-esophageal reflux disease without esophagitis; M17.0 Bilateral primary osteoarthritis of knee; E11.311 Type 2 diabetes mellitus with unspecified diabetic retinopathy with macular edema; F01.50 Vascular dementia, unspecified severity, without behavioral disturbance, psychotic disturbance, mood disturbance, and anxiety; F32.A Depression, unspecified; I70.1 Atherosclerosis of renal artery; D50.9 Iron deficiency anemia, unspecified; E83.42 Hypomagnesemia; E11.42 Type 2 diabetes mellitus with diabetic polyneuropathy; F41.9 Anxiety disorder, unspecified; D69.6 Thrombocytopenia, unspecified; R91.1 Solitary pulmonary nodule; Z98.41 Cataract extraction status, right eye; Z98.42 Cataract extraction status, left eye; Z87.891 Personal history of nicotine dependence; Z79.899 Other long term (current) drug therapy; Z79.82 Long term (current) use of aspirin; Z79.4 Long term (current) use of insulin; E53.8 Deficiency of other specified B group vitamins